=== PATIENT | female | born 1940 | race Caucasian/White ===

== ENCOUNTER 2018-12-03 14:45 | Inpatient (IN) | payer MEDICARE, BC, SELFPAY ==
[2018-12-03 15:26] VITALS: BP 147/65; PULSE 83; RESP 16; TEMP 37.3; O2SAT 94; BMI 34.3
--- NOTE | 2018-12-03 16:35 | PCM.PROGNOTE ---
Subjective: The patient is a 77-year-old female with a past medical history of anxiety, chronic renal failure stage III, dysthymia, GERD, hyperlipidemia, SVT, hypertension CML, retinitis pigmentosa and spinal stenosis of the lumbar region who was transferred to the rehab unit from the [facility] following laminectomy at L2-3, revision laminectomy at L4-5, removal of hardware L4-5 and fusion of L1-2?3?4. Vital signs at presentation to the rehab unit were temperature 99.1, pulse rate 83, blood pressure 147/65, respiratory rate 16 and she is 94% saturated on room air. She is a life long non-smoker. No alcohol use. she is a . EKG from the [facility] shows normal sinus rhythm with no significant ST or T wave changes. Has not had a BM since 11/27. Denies abdominal pain, nausea, dysuria. Appetite for the past day is decreased. She normally takes a stool softener at home. she gets nervous in crowds and when in close quarters because she can not see well. Has no peripheral vision. Denies any hx of heart disease other than SVT which is controlled. - Physical Exam General: Alert, Oriented x3, Cooperative, No apparent distress, Well developed, Well nourished, - - very pale HEENT: Atraumatic, PERRLA, Normocephalic Oral: No Gingival or Mucosal Lesions/ Ulcerations, Dry Mucosa Neck: Supple, No JVD, Negative Carotid Bruits, No Nodes, Trachea Midline, - - Carotids have brisk upstroke and excellent pulse volume bilaterally Lungs: Clear to auscultation, No rhonchi, No wheeze, No rales Cardiovascular: Regular rate, Regular Rhythm, Normal S1, Normal S2, Murmur - She has a grade 1/6 to 2/6 systolic ejection murmur heard best at the second right intercostal space, No rub noted, No Gallop Abdomen: Bowel Sounds Present, Soft, Non Tender, Non-Distended, No Hepato-splenomegaly, - - No guarding with palpation, no masses Extremities: No clubbing, No cyanosis, No edema, No Calf Tenderness, Peripheral Pulses Normal, - - She has many superficial varicosities of both lower extremities Skin: No rashes, No breakdown, - - The dressing over the lumbar spine is dry and there is no erythema or increased warmth around the dressing Neurological: Cranial nerves II-XII grossly intact, Neuro grossly intact Psych/Mental Status: Appropriate, Anxious Vital Signs Temp Pulse Resp BP Pulse Ox 99.1 F 83 16 147/65 H 94 12/03/18 15:26 12/03/18 15:26 12/03/18 15:26 12/03/18 15:26 12/03/18 15:26 Oxygen Delivery Method Room Air Weight: 213 lb Body Mass Index (BMI) 34.3 Medical Necessity - Tobacco Use Smoking Status: Never smoker Assessment/Plan Impressions 1. Lumbar canal stenosis with recent laminectomy L2-3, revision laminectomy L4-5, removal of hardware L4-5 and fusion of L1-2?3?4. She had a low graft of bone use diffuse 2. Retinitis pigmentosa 3. History of SVT controlled with diltiazem 4. Hypertension 5. Hyperlipidemia 6. CML - on Imatinib 7. Chronic renal failure stage III 8. Anemia-had 2 units of packed red blood cells transfused at the [facility] 9. GERD 10. Anxiety disorder 11. Sleep disorder-on Pamelor at bedtime in addition to Xanax 1 mg 12. very dry MM and states she is very thirsty Dulcolax 5 mg now Hold the HCTZ and encouraged her to increase her fluid intake Lab ordered for the AM Richard BID MV 1 daily Will review the lab in the AM when available. Code Visit Inpatient E&M: 50294 Subs Hosp L2
[2018-12-03] MEDS: Magnesium Hydroxide 30 ML UDC PO (18:13)
[2018-12-03] MEDS: oxyCODONE 5 MG Tablet PO (18:14)
[2018-12-03 19:53] VITALS: O2SAT 93
[2018-12-03 20:32] VITALS: BP 140/71; PULSE 77; RESP 18; TEMP 36.7; O2SAT 92
[2018-12-03] MEDS: FLUoxetine 20 MG Capsule 40 MG PO (20:39)
[2018-12-03] MEDS: Famotidine 20 MG Tablet 40 MG PO (20:39)
[2018-12-03] MEDS: Pravastatin 40 MG Tablet PO (20:39)
[2018-12-03] MEDS: Calcitriol 0.25 MCG Capsule PO (20:39)
[2018-12-03] MEDS: Nortriptyline 25 MG Capsule 50 MG PO (20:39)
[2018-12-03] MEDS: Senna/Docusate Sodium 1 Tablet 2 TABLET PO (20:39)
[2018-12-03] MEDS: ALPRAZolam 0.5 MG Tablet 1 MG PO (20:40)
[2018-12-03] MEDS: dilTIAZem CD 240 MG Capsule PO (20:40)
[2018-12-04] MEDS: oxyCODONE 5 MG Tablet PO ×4 (00:16→21:13)
[2018-12-04 05:49] LABS: Absolute Lymphocyte Count 0.98 X10^3/uL (0.83-4.51); Absolute Neutrophil Count 4.8 X10^3/uL (2.0-7.7); Basophil# 0.03 X10^3/uL; Basophil% 0.4 % (0-1); Eosinophil# 0.28 X10^3/uL; Eosinophils% 3.8 % (0-5); Hematocrit 28.3 % (37-47); Hemoglobin 9.7 g/dL (12.0-15.0); Lymphocyte # 0.98 X10^3/ul (4.0); Lymphocyte % 13.4 % (19-41); Mean Corp Hgb Conc 34.3 g/dL (32-36); Mean Corpuscular Hgb 33.9 pg (27.0-32.0); Mean Platelet Vol. 8.9 fl (6.2-12.0); Monocyte% 16.4 % (0-10); NRBC Flagged by Analyzer 0 % (0-5); Neutrophil # 4.79 X10^3/uL (2.7-7.7); Neutrophil % 65.6 % (47-70); Platelet Count 239 K/mm3 (150-450); RBC Distribution Width CV 14.6 % (11.6-14.6); Red Blood Count 2.86 M/mm3 (4.2-5.4); White Blood Count 7.3 K/mm3 (4.4-11.0)
[2018-12-04 06:14] LABS: Anion Gap 7 (5-15); BUN 13 mg/dL (7-18); BUN/Creat Ratio 12.5 RATIO (10-20); Calcium,Total 8.8 mg/dL (8.5-10.1); Chloride 95 mmol/L (98-107); Creatinine, Serum 1.04 mg/dL (0.55-1.02); EST Glomerular Filtration Rate 55 mL/min (>60); Est Glom Filt Rate - Afr Amer 66 mL/min (>60); Estimated Creatinine Clearance 43.08 ml/min; Glucose 113 mg/dL (74-106); Potassium 3.3 mmol/L (3.5-5.1); Sodium Level 133 mmol/L (136-145)
[2018-12-04 08:11] VITALS: BP 126/73; PULSE 71; RESP 16; TEMP 36.8; O2SAT 90
--- NOTE | 2018-12-04 09:58 | PCM.HP.COS ---
History of Present Illness Date of Admission: 12/03/18 Chief Complaint: Debility secondary to laminectomy and fusion The patient is a 77 year old F with PMH of CML, HTN, HLD, anxiety, depression, CKD stage III, GERD, retinitis pigmentosa, dysthymia, history of supraventricular tachycardia resolved, admitted to [facility] on 12/03/2018 for debility secondary to laminectomy and fusion, with a goal of returning home at or near her prior level of independence. On 11/28/2018, patient had Laminectomy L2-3, revision laminectomy L4-5, removal hardware L4-5, fusion L1-4, instrumentation L1-5, local bone, allograft by Dr. Hernandez due to stenosis, recurrent stenosis, and spondylolisthesis. Patient received 2 units of PRBC on 12/01/2018 d/t H&H 21.2/7.1, Hgb increased to 9.4 on 12/02/18. Patient lives alone in a one-story home with one-step to enter, prior to surgery she was independent with all ADLs and mobility. Patient stopped driving 2 years ago due to retinitis pigmentosa. Past Medical History Medical History: Medical History (Last Updated 12/03/18 @ 16:25 by Sondra Esquivel) Anxiety F41.9 Dysthymia F34.1 GERD (gastroesophageal reflux disease) K21.9 Hyperlipidemia E78.5 Leukemia C95.90 Onychomycosis B35.1 Retinitis pigmentosa H35.52 Spinal stenosis of lumbar region M48.061 Supraventricular tachycardia I47.1 chroinc kidney Hypertension I10 Allergies No Known Allergies Allergy (Verified 12/03/18 15:36) Home Medications: Ambulatory Orders Medication Instructions Recorded ALPRAZolam [Xanax] 1 mg PO QHS 12/03/18 Calcitriol 0.25 mcg PO QHS 12/03/18 Cyanocobalamin (Vitamin B-12) 200 mcg PO DAILY 12/03/18 [Vitamin B-12] Diltiazem HCl [Cardizem] 240 mg PO QHS 12/03/18 Fluoxetine HCl [Prozac] 40 mg PO QHS 12/03/18 Hydrochlorothiazide [Hctz] 25 mg PO DAILY 12/03/18 Imatinib Mesylate [Gleevec] 400 mg PO QHS 12/03/18 Nortriptyline HCl [Pamelor] 50 mg PO QHS 12/03/18 Oxycodone [Oxyir] 5 mg PO Q6H PRN 12/03/18 Pravastatin [Pravachol] 40 mg PO QHS 12/03/18 Ranitidine [Zantac] 300 mg PO BID 12/03/18 Surgical History: cataract, cholecystectomy, tonsillectomy, - - left hand 3rd digit surgery, left shoulder replacement, Lumbar fusion and laminectomy, Psychiatric History: Anxiety, Depression Lives: Alone Smoking Status: Never smoker Tobacco Use: Non-smoker Alcohol: None Drugs: None - *Family History Maternal History Items: Hypertension, - - Heart failure, macular degeneration Paternal History Items: - - at age 43 for some kind of heart disease per patient Review of Systems Constitutional: Denies: Chills, Fever, Weight Change Eyes: Reports: - - no peripherial kim d/t retinitis pegmentosa HEENT: Denies: Difficulty Swallowing, Head Aches, Sinus Congestion, Sinus Drainage Cardiovascular: Denies: Chest Pain, Chest Pressure, Chest Tightness, Palpitations Respiratory: Denies: Cough, Shortness of breath at rest, Shortness of breath upon exertion, Sputum production Gastrointestinal: Denies: Abdominal Pain, Nausea, Vomiting Genitourinary: Denies: Dysuria Musculoskeletal: Reports: - - minimal back pain post surgical Skin: Denies: Rash, Wounds Neurological: Denies: Blurred vision, Double vision, Change in Speech, Slurred speech, Focal weakness, Numbness, Tingling Psychiatric: Reports: Anxiety, Depression - has history, denies thoughts or feelings of self harm, nor has a plan Hematologic/ Lymphatic: Denies: Easy Bruising, Easy Bleeding VTE Information - Inpt Only VTE Present on Admission: No VTE Mechan Device Prophylaxis: SCD's VTE Pharm Prophylaxis ordered?: No Subjective: Nursing calling Dr. Hernandez office to ask about DVT prophylaxis. Rates pain as mild, intermittent, dull ache to back, increases during therapy. oxyir changed to every 4 hours as needed with scheduled Tylenol. Denies further questions or concerns. - Physical Exam General: Alert, Oriented x3, Cooperative HEENT: Atraumatic, PERRLA, - - no peripherial vision Oral: Moist Mucosa Neck: Supple, No JVD Lungs: Clear to auscultation, Normal air movement Cardiovascular: Regular rate, Regular Rhythm Abdomen: Bowel Sounds Present, Soft, Non Tender Extremities: No clubbing, No cyanosis, No edema Skin: Incision - drsg intact to lumbar incision, without drng noted or surroundng redness. Neurological: Cranial nerves II-XII grossly intact, Deep Tendon Reflexes 2+/4 and Symmetrical, Motor Exam 5/5 strength throughout Psych/Mental Status: Normal Affect, Appropriate, Alert and oriented to time, place, person, mood and affect Vital Signs Temp Pulse Resp BP Pulse Ox 98.3 F 71 16 126/73 H 90 12/04/18 08:11 12/04/18 08:11 12/04/18 08:11 12/04/18 08:11 12/04/18 08:11 Oxygen Delivery Method Room Air Weight: 96.615 kg Body Mass Index (BMI) 34.3 Intake and Output for Last 24 Hours 12/02/18 12/03/18 12/04/18 23:59 23:59 23:59 Output Total 450 / 450 177 / 177 Balance -450 / -450 -177 / -177 Laboratory Tests Past 24 Hrs 12/04/18 12/04/18 05:35 05:35 WBC 7.3 RBC 2.86 L Hgb 9.7 L Hct 28.3 L MCV 99.0 MCH 33.9 H MCHC 34.3 RDW Std Deviation 53.0 H RDW Coeff of Claudia 14.6 Plt Count 239 MPV 8.9 Immature Gran % (Auto) 0.400 Neut % (Auto) 65.6 Lymph % (Auto) 13.4 L [place] % (Auto) 16.4 H Eos % (Auto) 3.8 Baso % (Auto) 0.4 Absolute Neuts (auto) 4.8 Absolute Lymphs (auto) 0.98 Nucleated RBC % 0 Sodium 133 L Potassium 3.3 L Chloride 95 L Carbon Dioxide 31.0 Anion Gap 7 BUN 13 Creatinine 1.04 H Estim Creat Clear Calc 43.08 Est GFR (MDRD) Af Amer 66 Est GFR (MDRD) Non-Af 55 L BUN/Creatinine Ratio 12.5 Glucose 113 H Calcium 8.8 Assessment/Plan The patient is a 77 year old F with PMH of CML, HTN, HLD, anxiety, depression, CKD stage III, GERD, retinitis pigmentosa, dysthymia, history of supraventricular tachycardia resolved, admitted to [facility] on 12/03/2018 for debility secondary to laminectomy and fusion, with a goal of returning home at or near her prior level of independence. On 11/28/2018, patient had Laminectomy L2-3, revision laminectomy L4-5, removal hardware L4-5, fusion L1-4, instrumentation L1-5, local bone, allograft by Dr. Hernandez due to stenosis, recurrent stenosis, and spondylolisthesis. Patient received 2 units of PRBC on 12/01/2018 d/t H&H 21.2/7.1, Hgb increased to 9.4 on 12/02/18 Patient lives alone in a one-story home with one-step to enter, prior to surgery she was independent with all ADLs and mobility. Patient stopped driving 2 years ago due to retinitis pigmentosa. Plan - PT for mobility - OT for ADLs - Analgesics as needed - Laminectomy, revision and fusion- Appt with Dr. Hernandez on 12/15/18 @ 1000- rosibel to be d/c at appt, wear LSO brace when OOB, ok to remove LSO to bathe and dress. Shower daily and ice prn - CML on Gleevec - HTN on HCTZ d/c - HLD on Pravachol - HX of SVT on cardizem - Anxiety on Xanax - dysthymia on Prozac, Pamelor - CKD stage III - GERD on Pepcid - Retinitis pigmentosa - hypokalemia K+ 3.3 K-Dur 20 meq x 3 doses per hospitalist - Hyponatremia NA 133 encouraged fluids - GI/DVT prophylaxis on pepcid/SCDs message left with Dr. Hernandez office for DVT prophylaxis - Bowel protocol - Fall precautions - Medical management per hospitalist-consult - F/U Dr. Hernandez and PCP
[2018-12-04] MEDS: Senna/Docusate Sodium 1 Tablet 2 TABLET PO ×2 (10:22→21:15)
[2018-12-04] MEDS: Famotidine 20 MG Tablet 40 MG PO ×2 (10:23→21:16)
--- NOTE | 2018-12-04 11:00 | NURSING ---
left message for Dr Hernandez at [facility] to see if pt can start DVt propalitcs or not
[2018-12-04 11:18] VITALS: O2SAT 90
--- NOTE | 2018-12-04 14:02 | REHABEVAL_ITS ---
Admission Information Status Changes from Prescreening?: No changes Identified Actual Problem List:: Mobility Impaired, Self Care Deficit Potential Problem List:: DVT, Bleeding, Infection, UTI, Aspiration, Falls, Skin Integrity, Depression Risk of Complications DVT: LMWH, ARISTIDES Hose, Sequential Compression Device Bleeding: Monitor Lab Values, Nursing to Teach Precautions for anti-coagulation therapy., Wound, if applicable, to be assessed every shift., Stroke patients assessed for lethargy or change in status. Infection: Clinical Staff to Monitor for S/S of infection:, S/S of infection include fever, redness, warmth, etc. Urinary Tract Infection: Monitor for frequency, burning, discomfort, or incontinence., Nursing will obtain urine sample for urinalysis and C&S when ordered. Aspiration: Clinical staff will monitor for coughing, drooling, congestion., Speech will evaluate swallowing and dsyphasia., Nursing will monitor patient swallowing during meals. Falls: Patient will be evaluated for Fall Precautions, Patient will be placed on Fall Precautions as indicated per protocol. Skin Breakdown: Nursing will assess skin daily using assessment tool., Nursing will place on Skin Breakdown Precautions as indicated. Pain: Clinical staff will assess patient's pain level per protocol., Medications will be given, if needed, and the pain level reassessed., Other methods: Massage, distraction, decrease stimulus, etc. used PRN. Plan of Care Patient requires physician specializing in physical medicine and rehab oversight to provide close medical supervision of rehab issues including: Pain Management, Sleep Problems, Bowel and Bladder, Medical and co-morbidity Management, DVT prophylaxis, Rehabilitation Leadership, Coordination of treatment team Patient needs Physical Therapy: For a minimum of 1 hour, At least 5 out of 7 days Patient needs Physical Therapy to improve:: Mobility, Mobility, Mobility, Strengthening, Transfers, Stretching, ROM, Endurance, Stairs, Gait, Balance Patient needs Occupational Therapy: For a minimum of 1 hour, At least 5 out of 7 days Patient needs Occupational Therapy to improve ADL's incl.: Eating, Grooming, Bathing, Dressing, Toileting, Toilet transfers, Community Reintegration, Higher functioning activities, Household tasks, Adaptive Equipment, Splinting, Other activities as determined Patient requires speech therapy: For a minimum of 1 hour, At least 5 out of 7 days Patient requires speech therapy for: Swallowing, Cognition, Language Skills, Compensatory Strategies Patient requires 24/ Rehabilitation Nursing for: Pain Issues, Identifying and preventing risk factors, Monitoring and reporting current medical conditions, Assisting with ambulation, transfer, and all ADL's, Teaching patients about disease process and medications, Family teaching, Providing safe environment, Bowel and Bladder Issues, Skin integrity, Medication Management Patient needs Associate Data Scientist/ Case Management for: Discharge Planning, Arranging Home Equipment or Services, Family Interventions Patient needs Dietary and Nutrition Services for: Adequate Nutrition, Nutritional Supplements, Nutritional Education Goals Patient will remain: free from falls, or injury at time of discharge. Patient will perform bed mobility at: MOD I level of assist. Patient will complete transfers from bed to chair at: MOD I level of assist. Patient will ambulate: 100 feet, with MOD I assist, with LRD Patient will complete upper body dressing at: MOD I level of assist. Patient will complete lower body dressing at: MOD I level of assist. Patient will complete toileting at: MOD I level of assist. Patient will perform bathing at: MOD I level of assist. Patient will complete grooming at: MOD I level of assist. Patient will complete home management skills at: MOD I level of assist. Patient will achieve: 12 stairs, at MOD I assist Patient will have pain level of: of 3 or less Patient's skin will: remain intact, free from infection. Patient will receive: adequate nutrition. Discharge Planning Pt Prognosis for Sig. Practical Improv. w/in Reasonable Time: Good Estimated Length of stay (days): 16 Anticipated D/C Destination: Home
[2018-12-04] MEDS: Acetaminophen 500 MG Tablet 1000 MG PO ×2 (14:43→21:14)
[2018-12-04 19:25] VITALS: BP 98/61; PULSE 72; RESP 18; TEMP 36.8; O2SAT 93
[2018-12-04] MEDS: Nortriptyline 25 MG Capsule 50 MG PO (21:14)
[2018-12-04] MEDS: dilTIAZem CD 240 MG Capsule PO (21:14)
[2018-12-04] MEDS: Calcitriol 0.25 MCG Capsule PO (21:15)
[2018-12-04] MEDS: Pravastatin 40 MG Tablet PO (21:16)
[2018-12-04] MEDS: FLUoxetine 20 MG Capsule 40 MG PO (21:16)
[2018-12-04] MEDS: ALPRAZolam 0.5 MG Tablet 1 MG PO (21:28)
[2018-12-04 22:00] VITALS: PULSE 72; RESP 18; O2SAT 94
[2018-12-05] MEDS: oxyCODONE 5 MG Tablet PO ×4 (01:42→22:41)
--- NOTE | 2018-12-05 04:28 | NURSING ---
Pt set off BA and was found by staff attempting to get out of bed. Pt stated she didn't know why she couldn't get up to pee by herself. Pt reminded of safety measures in place to ensure pt remains fall free.
[2018-12-05] MEDS: Acetaminophen 500 MG Tablet 1000 MG PO ×3 (06:00→21:20)
--- NOTE | 2018-12-05 06:06 | NURSING ---
pt refused to have SCDs on after a.m. ADLS. Pt in bed planning to rest till breakfast and pt refused SCDs at this time. Pt advised of doctors orders and pt stated she doesn't like them.
[2018-12-05 06:38] VITALS: O2SAT 88
[2018-12-05 07:00] VITALS: BP 113/53; PULSE 65; RESP 16; TEMP 36.6; O2SAT 94
[2018-12-05] MEDS: Multivitamins,Therapeutic Tablet 1 TABLET PO (08:41)
[2018-12-05] MEDS: Senna/Docusate Sodium 1 Tablet 2 TABLET PO (08:41)
[2018-12-05] MEDS: Famotidine 20 MG Tablet 40 MG PO ×2 (08:41→21:20)
--- NOTE | 2018-12-05 12:05 | NURSING ---
called and left devin to nurses station left for office to caall back.ge with dr lopez office regarding wether or not pt can be on dvt prophylaxis and/or when it can be started.
--- NOTE | 2018-12-05 12:30 | NURSING ---
Received call from Dr. Patricia office and has ok'd patient to have DVT prophylaxis of Lovenox.
--- NOTE | 2018-12-05 12:51 | PN.NEURO_ITS ---
Subjective: Per nursing family voiced that patient had some confusion last night. Nursing voiced some urinary hesitancy, UA C&S will be obtained. O.K per Dr Hernandez to administer Lovenox as DVT prophylaxis. Pain is well controlled and is tolerating therapies. Denies further questions or concerns. - Physical Exam General: Alert, Oriented x3, Cooperative HEENT: Atraumatic, PERRLA Oral: Moist Mucosa Neck: Supple, No JVD Lungs: Clear to auscultation, Normal air movement Cardiovascular: Regular rate, Regular Rhythm Abdomen: Bowel Sounds Present, Soft, Non Tender Extremities: No clubbing, No cyanosis, No edema Skin: Incision - [place] intact to lumbar area, without redness or active drng- DSD Neurological: Cranial nerves II-XII grossly intact, Deep Tendon Reflexes 2+/4 and Symmetrical, Motor Exam 5/5 strength throughout Psych/Mental Status: Normal Affect, Appropriate, Alert and oriented to time, place, person, mood and affect Vital Signs Temp Pulse Resp BP Pulse Ox 97.9 F 65 16 113/53 L 94 12/05/18 07:00 12/05/18 07:00 12/05/18 07:00 12/05/18 07:00 12/05/18 07:00 Oxygen Delivery Method Room Air Weight: 96.6 kg Body Mass Index (BMI) 34.3 Intake and Output for Last 24 Hours 12/03/18 12/04/18 12/05/18 23:59 23:59 23:59 Intake Total 640 / 640 Output Total 450 / 450 178 / 178 Balance -450 / -450 -178 / -178 640 / 640 Medical Necessity - Tobacco Use Smoking Status: Never smoker Tobacco Use: Non-smoker Assessment/Plan The patient is a 77 year old F with PMH of CML, HTN, HLD, anxiety, depression, CKD stage III, GERD, retinitis pigmentosa, dysthymia, history of supraventricular tachycardia resolved, admitted to [facility] on 12/03/2018 for debility secondary to laminectomy and fusion, with a goal of returning home at or near her prior level of independence. On 11/28/2018, patient had Laminectomy L2-3, revision laminectomy L4-5, removal hardware L4-5, fusion L1-4, instrumentation L1-5, local bone, allograft by Dr. Hernandez due to stenosis, recurrent stenosis, and spondylolisthesis. Patient received 2 units of PRBC on 12/01/2018 d/t H&H 21.2/7.1, Hgb increased to 9.4 on 12/02/18 Patient lives alone in a one-story home with one-step to enter, prior to surgery she was independent with all ADLs and mobility. Patient stopped driving 2 years ago due to retinitis pigmentosa. Plan - PT for mobility - OT for ADLs - Analgesics as needed - Laminectomy, revision and fusion- Appt with Dr. Hernandez on 12/15/18 @ 1000- rosibel to be d/c at appt, wear LSO brace when OOB, ok to remove LSO to bathe and dress. Shower daily and ice prn - CML on Gleevec - HTN on HCTZ d/c - HLD on Pravachol - HX of SVT on cardizem - Anxiety on Xanax - dysthymia on Prozac, Pamelor - CKD stage III - GERD on Pepcid - Retinitis pigmentosa - hypokalemia K+ 3.3 K-Dur 20 meq x 3 doses per hospitalist BMP on 12/07/18 - Hyponatremia NA 133 encouraged fluids BMP on 12/07/18 - GI/DVT prophylaxis on pepcid/Lovenox and SCDs. - Confusion and urinary hesitancy obtain UA C&S - Bowel protocol - Fall precautions - Medical management per hospitalist-consult - F/U Dr. Hernandez and PCP
[2018-12-05 13:55] LABS: Bacteria 0 SEEN /hpf (None Seen); Mucous, Urine 0 SEEN /hpf (<or=2+); Red Blood Cells-Urine 0 SEEN /hpf (0-5); Squamous Epithelial Cells - UA 0 SEEN /hpf (5-10); White Blood Cells 0 SEEN /hpf (0-5)
--- NOTE | 2018-12-05 14:00 | NURSING ---
confusion noted. pt reoriented to place. pt c/o hesitancy with urination. dr kinney made aware. new order for ua. ua collected via straight cath, sent and negative. daughter updated.
[2018-12-05 14:09] LABS: Color, Urine Yellow (Yellow); Glucose, Dipstick Normal (Normal); Ketone-Dipstick Negative (Negative); Leukocyte Esterase-Dipstick Negative /ul (Negative); Nitrite-Dipstick Negative (Negative); Occult Blood-Urine Negative /ul (Negative); Protein-Dipstick Negative (Negative); Urine Bilirubin Dipstick Negative (Negative); Urine Clarity Clear (Clear); Urine Urobilinogen Normal (Normal)
[2018-12-05 19:49] VITALS: BP 134/83; PULSE 75; RESP 18; TEMP 36.7; O2SAT 94
[2018-12-05] MEDS: dilTIAZem CD 240 MG Capsule PO (21:19)
[2018-12-05] MEDS: FLUoxetine 20 MG Capsule 40 MG PO (21:20)
[2018-12-05] MEDS: Pravastatin 40 MG Tablet PO (21:20)
[2018-12-05] MEDS: Calcitriol 0.25 MCG Capsule PO (21:20)
[2018-12-05] MEDS: Nortriptyline 25 MG Capsule 50 MG PO (21:20)
[2018-12-05] MEDS: ALPRAZolam 0.5 MG Tablet 1 MG PO (21:26)
[2018-12-05 22:00] VITALS: PULSE 66; RESP 17; O2SAT 95
--- NOTE | 2018-12-05 23:42 | NURSING ---
20:00 dtr in room during pt assessment. Dtr journaling pt status. Dtr including remarks made by pt, such as, pt was waiting for Byron Whitmore from [facility] to divorce his and be with pt. Dtr queried pt about clarity of conversation and pt replied that she has been waiting 10 years so she might as well give up. Dtr expressed concern about pt confusion. Dtr was reassured that everything is being done for pt care and to ensure safety. Dtr stated she was reassured. Dtr will be at [facility] [place] [place] .
[2018-12-06] MEDS: oxyCODONE 5 MG Tablet PO (05:35)
[2018-12-06] MEDS: Acetaminophen 500 MG Tablet 1000 MG PO (05:35)
[2018-12-06] MEDS: Enoxaparin 40 MG/0.4 ML Syringe SC (05:36)
[2018-12-06 07:53] VITALS: BP 145/58; PULSE 75; RESP 18; TEMP 36.6; O2SAT 93
[2018-12-06] MEDS: Multivitamins,Therapeutic Tablet 1 TABLET PO (08:09)
[2018-12-06] MEDS: Famotidine 20 MG Tablet 40 MG PO ×2 (08:09→21:12)
--- NOTE | 2018-12-06 09:30 | NURSING ---
Daughter aware of new order to dc Oxyir and COUNTY COMMISSIONER Yanet ordered [place] to see if confusion would lessen.
--- NOTE | 2018-12-06 11:46 | PCM.PN.NEU ---
Subjective: Per nursing, daughter voicing with conversation. UA was negative. D/C oxyir and start norco 1-2 tabs every 6 hours as needed. Patient a/o x3 during assessment. Denies pain at rest. Tolerating therapies well. - Physical Exam General: Alert, Oriented x3, Cooperative HEENT: Atraumatic, PERRLA, - - left and right hemianopia- chronic Oral: Moist Mucosa Neck: Supple, No JVD Lungs: Clear to auscultation, Normal air movement Cardiovascular: Regular rate, Regular Rhythm Abdomen: Bowel Sounds Present, Soft, Non Tender Extremities: No clubbing, No cyanosis, No edema Skin: Incision - rosibel to lumbar area, without redness or drng. DSD Neurological: Cranial nerves II-XII grossly intact, Deep Tendon Reflexes 2+/4 and Symmetrical, Motor Exam 5/5 strength throughout Psych/Mental Status: Normal Affect, Appropriate, Alert and oriented to time, place, person, mood and affect Vital Signs Temp Pulse Resp BP Pulse Ox 97.8 F 75 18 145/58 H 93 12/06/18 07:53 12/06/18 07:53 12/06/18 07:53 12/06/18 07:53 12/06/18 07:53 Oxygen Delivery Method Room Air Weight: 77.8 kg Body Mass Index (BMI) 34.3 Intake and Output for Last 24 Hours 12/04/18 12/05/18 12/06/18 23:59 23:59 23:59 Intake Total 1120 / 1120 240 / 240 Output Total 178 / 178 Balance -178 / -178 1120 / 1120 240 / 240 Laboratory Tests Past 24 Hrs 12/05/18 13:15 Urine Color Yellow Urine Clarity Clear Urine pH 6.0 Ur Specific [place] 1.010 Urine Protein Negative Urine Glucose (UA) Normal Urine Ketones Negative Urine Occult Blood Negative Urine Nitrite Negative Urine Bilirubin Negative Urine Urobilinogen Normal Ur Leukocyte Esterase Negative Urine RBC 0 SEEN Urine WBC 0 SEEN Ur Squamous Epith Cells 0 SEEN Urine Bacteria 0 SEEN Urine Mucus 0 SEEN Medical Necessity - Tobacco Use Smoking Status: Never smoker Tobacco Use: Non-smoker Assessment/Plan The patient is a 77 year old F with PMH of CML, HTN, HLD, anxiety, depression, CKD stage III, GERD, retinitis pigmentosa, dysthymia, history of supraventricular tachycardia resolved, admitted to [facility] on 12/03/2018 for debility secondary to laminectomy and fusion, with a goal of returning home at or near her prior level of independence. On 11/28/2018, patient had Laminectomy L2-3, revision laminectomy L4-5, removal hardware L4-5, fusion L1-4, instrumentation L1-5, local bone, allograft by Dr. Henrandez due to stenosis, recurrent stenosis, and spondylolisthesis. Patient received 2 units of PRBC on 12/01/2018 d/t H&H 21.2/7.1, Hgb increased to 9.4 on 12/02/18 Patient lives alone in a one-story home with one-step to enter, prior to surgery she was independent with all ADLs and mobility. Patient stopped driving 2 years ago due to retinitis pigmentosa. Plan - PT for mobility - OT for ADLs - Analgesics as needed - Laminectomy, revision and fusion- Appt with Dr. Hernandez on 12/15/18 @ 1000- rosibel to be d/c at appt, wear LSO brace when OOB, ok to remove LSO to bathe and dress. Shower daily and ice prn - CML on Gleevec - HTN on HCTZ d/c - HLD on Pravachol - HX of SVT on cardizem - Anxiety on Xanax - dysthymia on Prozac, Pamelor - CKD stage III - GERD on Pepcid - Retinitis pigmentosa - hypokalemia K+ 3.3 K-Dur 20 meq x 3 doses per hospitalist BMP on 12/07/18 - Hyponatremia NA 133 encouraged fluids BMP on 12/07/18 - GI/DVT prophylaxis on pepcid/Lovenox and SCDs. - Confusion and urinary hesitancy obtain UA - negative oxyir d/c and added norco - Bowel protocol - Fall precautions - Medical management per hospitalist-consult - F/U Dr. Hernandez and PCP
--- NOTE | 2018-12-06 18:51 | NURSING ---
pt alarm sounding alerting staff, upon entering room, pt attempting to self transfer from recliner chair to bed. Family present at time and educated on importance of pt ringing call light and staff assisting with transfer. Voiced understanding.
[2018-12-06 19:35] VITALS: BP 127/74; PULSE 78; RESP 16; TEMP 36.9; O2SAT 97
[2018-12-06] MEDS: HYDROcodone Bitartrate/Apap 5/325 Tablet PO (20:02)
[2018-12-06] MEDS: Nortriptyline 25 MG Capsule 50 MG PO (21:12)
[2018-12-06] MEDS: dilTIAZem CD 240 MG Capsule PO (21:12)
[2018-12-06] MEDS: Calcitriol 0.25 MCG Capsule PO (21:12)
[2018-12-06] MEDS: ALPRAZolam 0.5 MG Tablet 1 MG PO (21:12)
[2018-12-06] MEDS: FLUoxetine 20 MG Capsule 40 MG PO (21:12)
[2018-12-06] MEDS: Pravastatin 40 MG Tablet PO (21:12)
[2018-12-06 22:00] VITALS: PULSE 78; RESP 16; O2SAT 94
[2018-12-07] MEDS: HYDROcodone Bitartrate/Apap 5/325 Tablet PO ×3 (02:22→20:59)
--- NOTE | 2018-12-07 02:39 | NURSING ---
Pt reclining in bed eating chips and drinking after complaining she hasn't been able to sleep. [place] provided for c/o pain. Pt remarked about not understanding why she had to call for assistance to toilet. Pt states she can make it to the bathroom on her own. Pt has been up several times for toileting with staff assistance. Pt has spilled her water pitcher onto floor & staff cleaned up. Staff are jumping up constantly to noises from room, fearing pt is attempting to get up. Staff is monitoring closely.
[2018-12-07] MEDS: Enoxaparin 40 MG/0.4 ML Syringe SC (05:22)
[2018-12-07 06:07] LABS: Anion Gap 7 (5-15); BUN 25 mg/dL (7-18); BUN/Creat Ratio 26.5 RATIO (10-20); Calcium,Total 8.9 mg/dL (8.5-10.1); Chloride 103 mmol/L (98-107); Creatinine, Serum 0.94 mg/dL (0.55-1.02); EST Glomerular Filtration Rate 61 mL/min (>60); Est Glom Filt Rate - Afr Amer 74 mL/min (>60); Estimated Creatinine Clearance 47.66 ml/min; Glucose 107 mg/dL (74-106); Potassium 3.4 mmol/L (3.5-5.1); Sodium Level 137 mmol/L (136-145)
[2018-12-07] MEDS: Multivitamins,Therapeutic Tablet 1 TABLET PO (08:03)
[2018-12-07] MEDS: Senna/Docusate Sodium 1 Tablet 2 TABLET PO (08:03)
[2018-12-07] MEDS: Famotidine 20 MG Tablet 40 MG PO ×2 (08:03→21:00)
[2018-12-07 08:07] VITALS: BP 138/79; PULSE 74; RESP 16; TEMP 36.7; O2SAT 95
--- NOTE | 2018-12-07 09:06 | PN.NEURO_ITS ---
Subjective: Staffed team meeting. Further details from PT/OT from notes. All questions answered. Patient gets up multiple times through the night to go to the bathroom, this is her baseline. Denies burning, hesitancy, difficultly voiding or painful with urination. Seroquel 12.5 mg QHS will be started. Nortriptyline and Xanax will be discontinued. - Physical Exam General: Alert, Oriented x3, Cooperative, - - can be forgetul at times HEENT: Atraumatic, PERRLA, - - left and right hemianopia Oral: Moist Mucosa Neck: Supple, No JVD Lungs: Clear to auscultation, Normal air movement Cardiovascular: Regular rate, Regular Rhythm Abdomen: Bowel Sounds Present, Soft, Non Tender Extremities: No clubbing, No cyanosis, No edema Skin: Incision - rosibel intact without redness or drng, DSD Neurological: Cranial nerves II-XII grossly intact, Deep Tendon Reflexes 2+/4 and Symmetrical, Motor Exam 5/5 strength throughout Psych/Mental Status: Normal Affect, Appropriate, Alert and oriented to time, place, person, mood and affect - can be forgetful at times, redirects easily, cooperative and pleasant Vital Signs Temp Pulse Resp BP Pulse Ox 98.0 F 74 16 138/79 H 95 12/07/18 08:07 12/07/18 08:07 12/07/18 08:07 12/07/18 08:07 12/07/18 08:07 Oxygen Delivery Method Room Air Weight: 77.8 kg Body Mass Index (BMI) 34.3 Intake and Output for Last 24 Hours 12/05/18 12/06/18 12/07/18 23:59 23:59 23:59 Intake Total 1120 / 1120 240 / 240 Balance 1120 / 1120 240 / 240 Laboratory Tests Past 24 Hrs 12/07/18 05:33 Sodium 137 Potassium 3.4 L Chloride 103 Carbon Dioxide 27.0 Anion Gap 7 BUN 25 H Creatinine 0.94 Estim Creat Clear Calc 47.66 Est GFR (MDRD) Af Amer 74 Est GFR (MDRD) Non-Af 61 BUN/Creatinine Ratio 26.5 H Glucose 107 H Calcium 8.9 Medical Necessity - Tobacco Use Smoking Status: Never smoker Tobacco Use: Non-smoker Assessment/Plan The patient is a 77 year old F with PMH of CML, HTN, HLD, anxiety, depression, CKD stage III, GERD, retinitis pigmentosa, dysthymia, history of supraventricular tachycardia resolved, admitted to [facility] on 12/03/2018 for debility secondary to laminectomy and fusion, with a goal of returning home at or near her prior level of independence. On 11/28/2018, patient had Laminectomy L2-3, revision laminectomy L4-5, removal hardware L4-5, fusion L1-4, instrumentation L1-5, local bone, allograft by Dr. Hernandez due to stenosis, recurrent stenosis, and spondylolisthesis. Patient received 2 units of PRBC on 12/01/2018 d/t H&H 21.2/7.1, Hgb increased to 9.4 on 12/02/18 Patient lives alone in a one-story home with one-step to enter, prior to surgery she was independent with all ADLs and mobility. Patient stopped driving 2 years ago due to retinitis pigmentosa. Plan - PT for mobility - OT for ADLs - Analgesics as needed - Laminectomy, revision and fusion- Appt with Dr. Hernandez on 12/15/18 @ 1000- rosibel to be d/c at appt, wear LSO brace when OOB, ok to remove LSO to bathe and dress. Shower daily and ice prn - CML on Gleevec - HTN on HCTZ d/c - HLD on Pravachol - HX of SVT on cardizem - Anxiety xanax d/c was started on seroquel - dysthymia on Prozac Pamelor - CKD stage III - GERD on Pepcid - Retinitis pigmentosa - hypokalemia K+ 3.3 K-Dur 20 meq x 3 doses recheck BMP on 12/07/18 K+ 3.4 - directed by hospitalist - Hyponatremia NA 133 encouraged fluids BMP on 12/07/18 NA 137 - Insomnia on seroquel - GI/DVT prophylaxis on pepcid/Lovenox and SCDs. - Confusion and urinary hesitancy obtain UA - negative oxyir d/c and added norco - Bowel protocol - Fall precautions - Medical management per hospitalist-consult - F/U Dr. Hernandez and PCP
--- NOTE | 2018-12-07 10:53 | NURSING ---
pt bed exit alarm going off and pt found to be up in room without brace out of bed without walker. stated, whats that noise? is the phone ringing? pa and bed exit on d/t confusion and unsteadiness
--- NOTE | 2018-12-07 11:14 | CASEMGMT ---
Social Work IDT met with patient and daughter for Team Meeting. Discussed patient's progress in therapy. Pt experiencing confusion and being fidgety which daughter states is not baseline. Medication adjustments made. Patient is doing well in therapy walking 150 ft with FWW at min assists. Min for transfers, ADLS and bed mobility as pt has poor balance, and doing 3 steps with 2 rails. Patient needing mod assist for lower body dressing d/t back precautions. Pt having difficulty remembering to use DME for assistance. Will continue to work on improvement and return to baseline home alone. Explained Medicare benefit with [employer] until 12/23. Will ReTeam next week to discuss progress. Will continue to follow for discharge planning. JUDIT BotelloW
[2018-12-07 19:21] VITALS: BP 161/67; PULSE 80; RESP 18; TEMP 36.6; O2SAT 95
[2018-12-07] MEDS: QUEtiapine 25 MG Tablet 12.5 MG PO (20:52)
[2018-12-07] MEDS: Pravastatin 40 MG Tablet PO (21:00)
[2018-12-07] MEDS: Calcitriol 0.25 MCG Capsule PO (21:00)
[2018-12-07] MEDS: FLUoxetine 20 MG Capsule 40 MG PO (21:00)
[2018-12-07] MEDS: dilTIAZem CD 240 MG Capsule PO (21:01)
[2018-12-08] MEDS: Enoxaparin 40 MG/0.4 ML Syringe SC (06:41)
[2018-12-08] MEDS: Famotidine 20 MG Tablet 40 MG PO ×2 (08:09→21:10)
[2018-12-08] MEDS: Multivitamins,Therapeutic Tablet 1 TABLET PO (08:09)
[2018-12-08 09:12] VITALS: BP 162/71; PULSE 84; RESP 16; TEMP 37; O2SAT 95
--- NOTE | 2018-12-08 14:29 | PN.NEURO_ITS ---
Subjective: Per nursing, continues to wake up through the night multiple times for bathroom. Received one dose of 12 mg of seroquel last night, continue sleep hygiene, keep up and active, no naps during the day. Patient continues to tolerate therapies and pain is controlled. Denies further questions or concerns. - Physical Exam General: Alert, Oriented x3 - can be forgetful at times HEENT: Atraumatic, PERRLA, - - chronic-left and right hemianopia Oral: Moist Mucosa Neck: Supple, No JVD Lungs: Clear to auscultation, Normal air movement Cardiovascular: Regular rate, Regular Rhythm Abdomen: Bowel Sounds Present, Soft, Non Tender Extremities: No clubbing, No cyanosis, No edema Skin: Incision - rosibel intact to lumbar area, without redness or drng Neurological: Cranial nerves II-XII grossly intact - chronic- left and right hemianopia, Motor Exam 5/5 strength throughout Psych/Mental Status: Normal Affect, Appropriate, Alert and oriented to time, place, person, mood and affect - can be forgetful at times, redirects easily, cooperative and pleasant Vital Signs Temp Pulse Resp BP Pulse Ox 98.6 F 84 16 162/71 H 95 12/08/18 09:12 12/08/18 09:12 12/08/18 09:12 12/08/18 09:12 12/08/18 09:12 Oxygen Delivery Method Room Air Weight: 77.8 kg Body Mass Index (BMI) 34.3 Intake and Output for Last 24 Hours 12/06/18 12/07/18 12/08/18 23:59 23:59 23:59 Intake Total 240 / 240 240 / 240 Output Total 100 / 100 Balance 240 / 240 240 / 240 -100 / -100 Medical Necessity - Tobacco Use Smoking Status: Never smoker Tobacco Use: Non-smoker Assessment/Plan The patient is a 77 year old F with PMH of CML, HTN, HLD, anxiety, depression, CKD stage III, GERD, retinitis pigmentosa, dysthymia, history of supraventr icular tachycardia resolved, admitted to [facility] on 12/03/2018 for debility secondary to laminectomy and fusion, with a goal of returning home at or near her prior level of independence. On 11/28/2018, patient had Laminectomy L2-3, revision laminectomy L4-5, removal hardware L4-5, fusion L1-4, instrumentation L1-5, local bone, allograft by Dr. Hernandez due to stenosis, recurrent stenosis, and spondylolisthesis. Patient received 2 units of PRBC on 12/01/2018 d/t H&H 21.2/7.1, Hgb increased to 9.4 on 12/02/18 Patient lives alone in a one-story home with one-step to enter, prior to surgery she was independent with all ADLs and mobility. Patient stopped driving 2 years ago due to retinitis pigmentosa. Plan - PT for mobility - OT for ADLs - Analgesics as needed - Laminectomy, revision and fusion- Appt with Dr. Hernandez on 12/15/18 @ 1000- rosibel to be d/c at appt, wear LSO brace when OOB, ok to remove LSO to bathe and dress. Shower daily and ice prn - CML on Gleevec - HTN on HCTZ d/c - HLD on Pravachol - HX of SVT on cardizem - Anxiety xanax d/c was started on seroquel - dysthymia on Prozac, Pamelor - CKD stage III - GERD on Pepcid - Retinitis pigmentosa - hypokalemia K+ 3.3 K-Dur 20 meq x 3 doses recheck BMP on 12/07/18 K+ 3.4 - directed by hospitalist - Hyponatremia NA 133 encouraged fluids BMP on 12/07/18 NA 137 - Insomnia on seroquel - GI/DVT prophylaxis on pepcid/Lovenox and SCDs. - Confusion and urinary hesitancy obtain UA - negative oxyir d/c and added norco - Bowel protocol - Fall precautions - Medical management per hospitalist-consult - F/U Dr. Hernandez and PCP
[2018-12-08 18:42] VITALS: BP 154/78; PULSE 16; RESP 87; TEMP 36.5; O2SAT 95
[2018-12-08] MEDS: QUEtiapine 25 MG Tablet 12.5 MG PO (21:09)
[2018-12-08] MEDS: dilTIAZem CD 240 MG Capsule PO (21:09)
[2018-12-08] MEDS: Loperamide 2 MG Capsule PO (21:09)
[2018-12-08] MEDS: Calcitriol 0.25 MCG Capsule PO (21:10)
[2018-12-08] MEDS: Pravastatin 40 MG Tablet PO (21:11)
[2018-12-08] MEDS: FLUoxetine 20 MG Capsule 40 MG PO (21:15)
[2018-12-09] MEDS: Enoxaparin 40 MG/0.4 ML Syringe SC (05:36)
[2018-12-09 07:00] VITALS: BP 150/72; PULSE 83; RESP 15; TEMP 36.9; O2SAT 94
[2018-12-09] MEDS: Multivitamins,Therapeutic Tablet 1 TABLET PO (08:31)
[2018-12-09] MEDS: Famotidine 20 MG Tablet 40 MG PO ×2 (08:31→21:37)
--- NOTE | 2018-12-09 11:07 | PCM.PN.HOSP ---
Subjective: Doing well with therapy, no issues overnight Vitals/I&O's: Vital Signs Temp Pulse Resp BP Pulse Ox 98.5 F 83 15 150/72 H 94 12/09/18 07:00 12/09/18 07:00 12/09/18 07:00 12/09/18 07:00 12/09/18 07:00 Oxygen Delivery Method Room Air Weight: 171 lb 8.314 oz Body Mass Index (BMI) 34.3 Intake and Output for Last 24 Hours 12/07/18 12/08/18 12/09/18 23:59 23:59 23:59 Intake Total 240 / 240 240 / 240 Output Total 100 / 100 Balance 240 / 240 -100 / -100 240 / 240 General: Alert, Oriented x3, Cooperative, No apparent distress HEENT: Atraumatic, PERRLA, EOMI, Normocephalic Oral: Moist Mucosa Neck: Supple, No JVD Lungs: Clear to auscultation, Normal air movement, No rhonchi, No wheeze, No rales Cardiovascular: Regular rate, Regular Rhythm, Normal S1, Normal S2, No murmurs Abdomen: Soft, Non Tender, Non-Distended, No Hepato-splenomegaly Extremities: No edema, Capillary Refill Less than 3 Seconds Skin: No rashes, No breakdown, Incision - C/D/I Neurological: Neuro grossly intact, Sensory exam intact to light touch and pain Psych/Mental Status: Normal Affect, Appropriate Current Medications Hydrocodone Bitart/Acetaminophen (Tow 5mg-325mg) 1 - 2 tablet PO Q6H PRN PRN PRN Reason: PAIN Last Admin: 12/07/18 20:59 Dose: 1 tablet Documented by: Bisacodyl (Dulcolax) 10 mg RECTAL .PRN X 1 PRN PRN Reason: Constipation Calcitriol (Rocaltrol) 0.25 mcg PO QHS [facility] Last Admin: 12/08/18 21:10 Dose: 0.25 mcg Documented by: Diltiazem HCl (Cardizem Cd) 240 mg PO QHS [facility] Last Admin: 12/08/18 21:09 Dose: 240 mg Documented by: Enoxaparin Sodium (Lovenox) 40 mg SC DAILY@0600 [facility] Last Admin: 12/09/18 05:36 Dose: 40 mg Documented by: Famotidine (Pepcid) 40 mg PO BID [facility] Last Admin: 12/09/18 08:31 Dose: 40 mg Documented by: Fluoxetine HCl (Prozac) 40 mg PO QHS [facility] Last Admin: 12/08/18 21:15 Dose: 40 mg Documented by: Imatinib Mesylate (Gleevec) 400 mg PO QHS [facility] Last Admin: 12/08/18 21:08 Dose: 400 mg Documented by: Loperamide HCl (Imodium) 2 mg PO TID PRN PRN PRN Reason: DIARRHEA/LOOSE STOOLS Last Admin: 12/08/18 21:09 Dose: 2 mg Documented by: Magnesium Hydroxide (Milk Of Magnesia) 30 ml PO .PRN X 1 PRN PRN Reason: Constipation Last Admin: 12/03/18 18:13 Dose: 30 ml Documented by: [facility]ivit[facility] ([facility]amin) [facility] Last Admin: 12/09/18 08:31 Dose: 1 tablet Documented by: Nutritional Formula (Richard - [place] Flavor) [facility] Last Admin: 12/09/18 08:31 Dose: 1 packet Documented by: Potassium Chloride (K-Dur) [facility] Last Admin: 12/09/18 08:31 Dose: 20 meq Documented by: Pravastatin Sodium (Pravachol) 40 mg PO QHS [facility] Last Admin: 12/08/18 21:11 Dose: 40 mg Documented by: Quetiapine Fumarate (Seroquel) 12.5 mg PO QHS [facility] Last Admin: 12/08/18 21:09 Dose: 12.5 mg Documented by: Senna/Docusate Sodium (Senokot-S, Malathi-Colace) 2 tablet PO BID [facility] Last Admin: 12/09/18 07:36 Dose: Not Given Documented by: Medical Necessity - Tobacco Use Smoking Status: Never smoker Tobacco Use: Non-smoker Assessment/Plan 1. Lumbar canal stenosis status post laminectomy of L2-3, revision laminectomy of L4 and 5 as well as removal of hardware from L4 and 5 and fusion of L1-4 -Continue with PT/OT -Incision does not seem to be infected -Continue pain management per primary 2. HTN/HLD/history of SVT -Continue with her home blood pressure medications as well as her statin -Continue with her Cardizem for her SVT 3. CML -Stable -Continue with imatinib 4. Chronic renal failure stage III -Creatinine and GFR at baseline -Continue to monitor periodically 5. Depression/anxiety/sleep disorder -Stable -Continue with Prozac -Continue Seroquel 12.5 mg at night 6. Anemia possibly secondary to chronic disease versus acute blood loss from surgery -Transfuse 2 units at the [facility] after surgery -9.7 on admission -Will monitor periodically and transfuse as necessary DVT: Lovenox
[2018-12-09] MEDS: HYDROcodone Bitartrate/Apap 5/325 Tablet PO ×2 (13:49→21:34)
[2018-12-09 19:30] VITALS: BP 131/77; PULSE 81; RESP 16; TEMP 37; O2SAT 94
[2018-12-09] MEDS: QUEtiapine 25 MG Tablet 12.5 MG PO (21:36)
[2018-12-09] MEDS: Pravastatin 40 MG Tablet PO (21:37)
[2018-12-09] MEDS: Calcitriol 0.25 MCG Capsule PO (21:37)
[2018-12-09] MEDS: FLUoxetine 20 MG Capsule 40 MG PO (21:37)
[2018-12-09] MEDS: dilTIAZem CD 240 MG Capsule PO (21:37)
--- NOTE | 2018-12-10 01:50 | NURSING ---
PT STATES SHE HAS BEEN UNABLE TO FALL ASLEEP THUS FAR THIS SHIFT AND FEELS IF SHE HAD GABAPENTIN THAT WOULD HELP HER LEGS TO CALM DOWN AND SHE MAY BE ABLE TO FALL ASLEEP. PT STATES SHE WOULD USES GABAPENTIN AT HOME FOR THIS. CALL PLACED TO HOSPITALIST WHO WILL PUT IN AN ORDER FOR A REQUIP.
[2018-12-10] MEDS: Pramipexole Di-HCl 0.5 MG Tablet PO ×2 (02:25→21:08)
[2018-12-10] MEDS: HYDROcodone Bitartrate/Apap 5/325 Tablet PO (03:44)
[2018-12-10 07:00] VITALS: BP 155/50; PULSE 77; RESP 16; TEMP 36.9; O2SAT 97
[2018-12-10] MEDS: Enoxaparin 40 MG/0.4 ML Syringe SC (07:18)
[2018-12-10] MEDS: Famotidine 20 MG Tablet 40 MG PO ×2 (07:36→21:08)
[2018-12-10] MEDS: hydroCHLOROthiazide 25 MG Tablet PO (07:36)
[2018-12-10] MEDS: Multivitamins,Therapeutic Tablet 1 TABLET PO (07:36)
[2018-12-10 19:56] VITALS: BP 164/82; PULSE 92; RESP 18; TEMP 36.8; O2SAT 96
[2018-12-10] MEDS: QUEtiapine 25 MG Tablet 12.5 MG PO (21:06)
[2018-12-10] MEDS: Calcitriol 0.25 MCG Capsule PO (21:08)
[2018-12-10] MEDS: FLUoxetine 20 MG Capsule 40 MG PO (21:08)
[2018-12-10] MEDS: Pravastatin 40 MG Tablet PO (21:08)
[2018-12-10] MEDS: dilTIAZem CD 240 MG Capsule PO (21:09)
[2018-12-11 05:40] LABS: Absolute Lymphocyte Count 1.03 X10^3/uL (0.83-4.51); Absolute Neutrophil Count 4.9 X10^3/uL (2.0-7.7); Basophil# 0.04 X10^3/uL; Basophil% 0.6 % (0-1); Eosinophil# 0.27 X10^3/uL; Eosinophils% 3.9 % (0-5); Hematocrit 30.2 % (37-47); Hemoglobin 10.3 g/dL (12.0-15.0); Lymphocyte # 1.03 X10^3/ul (4.0); Lymphocyte % 14.9 % (19-41); Mean Corp Hgb Conc 34.1 g/dL (32-36); Mean Corpuscular Hgb 33.8 pg (27.0-32.0); Mean Platelet Vol. 8.7 fl (6.2-12.0); Monocyte# 0.67 X10^3/uL; Monocyte% 9.7 % (0-10); NRBC Flagged by Analyzer 0 % (0-5); Neutrophil # 4.88 X10^3/uL (2.7-7.7); Neutrophil % 70.3 % (47-70); Platelet Count 401 K/mm3 (150-450); RBC Distribution Width CV 14.1 % (11.6-14.6); RBC Distribution Width SD 51.6 fl (35.1-43.9); Red Blood Count 3.05 M/mm3 (4.2-5.4); White Blood Count 6.9 K/mm3 (4.4-11.0)
[2018-12-11] MEDS: Enoxaparin 40 MG/0.4 ML Syringe SC (06:47)
[2018-12-11] MEDS: HYDROcodone Bitartrate/Apap 5/325 Tablet PO ×2 (06:51→17:37)
--- NOTE | 2018-12-11 07:09 | NURSING ---
SCANT AMT SEROSANAGUINOUS, ODORLESS DRAINAGE NOTED FROM BACK INCISION. CLEANSED WITH SALINE AND STERILE GAUZE/ABD PAD APPLIED.NO REDNESS NOTED TO INCISION.
[2018-12-11 07:15] VITALS: BP 159/74; PULSE 80; RESP 17; TEMP 37; O2SAT 96
[2018-12-11] MEDS: Multivitamins,Therapeutic Tablet 1 TABLET PO (07:40)
[2018-12-11] MEDS: hydroCHLOROthiazide 25 MG Tablet PO (07:41)
[2018-12-11] MEDS: Famotidine 20 MG Tablet 40 MG PO ×2 (07:41→21:21)
--- NOTE | 2018-12-11 08:44 | PCM.PN.HOSP ---
Subjective: Doing well with therapy no issues overnight Vitals/I&O's: Vital Signs Temp Pulse Resp BP Pulse Ox 98.6 F 80 17 159/74 H 96 12/11/18 07:15 12/11/18 07:15 12/11/18 07:15 12/11/18 07:15 12/11/18 07:15 Oxygen Delivery Method Room Air Weight: 171 lb 8.314 oz Body Mass Index (BMI) 34.3 Intake and Output for Last 24 Hours 12/09/18 12/10/18 12/11/18 23:59 23:59 23:59 Intake Total 720 / 720 240 / 240 490 / 490 Balance 720 / 720 240 / 240 490 / 490 General: Alert, Oriented x3, Cooperative, No apparent distress HEENT: Atraumatic, PERRLA, EOMI, Normocephalic Oral: Moist Mucosa Neck: Supple, No JVD Lungs: Clear to auscultation, Normal air movement, No rhonchi, No wheeze, No rales Cardiovascular: Regular rate, Regular Rhythm, Normal S1, Normal S2, No murmurs Abdomen: Soft, Non Tender, Non-Distended, No Hepato-splenomegaly Extremities: No edema, Capillary Refill Less than 3 Seconds Skin: No rashes, No breakdown, Incision - C/D/I Neurological: Neuro grossly intact, Sensory exam intact to light touch and pain Psych/Mental Status: Normal Affect, Appropriate Laboratory Results 12/11/18 05:20: WBC 6.9, RBC 3.05 L, Hgb 10.3 L, Hct 30.2 L, MCV 99.0, MCH 33.8 H, MCHC 34.1, RDW Std Deviation 51.6 H, RDW Coeff of Claudia 14.1, Plt Count 401, MPV 8.7, Immature Gran % (Auto) 0.600, Neut % (Auto) 70.3 H, Lymph % (Auto) 14.9 L, [place] % (Auto) 9.7, Eos % (Auto) 3.9, Baso % (Auto) 0.6, Absolute Neuts (auto) 4.9, Absolute Lymphs (auto) 1.03, Nucleated RBC % 0 Current Medications Hydrocodone Bitart/Acetaminophen ([place] 5mg-325mg) 1 - 2 tablet PO Q6H PRN PRN PRN Reason: PAIN Last Admin: 12/11/18 06:51 Dose: 1 tablet Documented by: Bisacodyl (Dulcolax) 10 mg RECTAL .PRN X 1 PRN PRN Reason: Constipation Calcitriol (Rocaltrol) 0.25 mcg PO QHS [facility] Last Admin: 12/10/18 21:08 Dose: 0.25 mcg Documented by: Diltiazem HCl (Cardizem Cd) 240 mg PO QHS [facility] Last Admin: 12/10/18 21:09 Dose: 240 mg Documented by: Enoxaparin Sodium (Lovenox) 40 mg SC DAILY@0600 [facility] Last Admin: 12/11/18 06:47 Dose: 40 mg Documented by: Famotidine (Pepcid) 40 mg PO BID [facility] Last Admin: 12/11/18 07:41 Dose: 40 mg Documented by: Fluoxetine HCl (Prozac) 40 mg PO QHS [facility] Last Admin: 12/10/18 21:08 Dose: 40 mg Documented by: Hydrochlorothiazide (Hctz) 25 mg PO DAILY [facility] Last Admin: 12/11/18 07:41 Dose: 25 mg Documented by: Imatinib Mesylate (Gleevec) 400 mg PO QHS [facility] Last Admin: 12/10/18 21:09 Dose: 400 mg Documented by: Loperamide HCl (Imodium) 2 mg PO TID PRN PRN PRN Reason: DIARRHEA/LOOSE STOOLS Last Admin: 12/08/18 21:09 Dose: 2 mg Documented by: Magnesium Hydroxide (Milk Of Magnesia) 30 ml PO .PRN X 1 PRN PRN Reason: Constipation Last Admin: 12/03/18 18:13 Dose: 30 ml Documented by: Multivitamins (Multivitamin) [facility] Last Admin: 12/11/18 07:40 Dose: 1 tablet Documented by: Nutritional Formula (Richard - [place] Flavor) [facility] Last Admin: 12/11/18 07:40 Dose: 1 packet Documented by: Potassium Chloride (K-Dur) 20 meq [facility] Last Admin: 12/11/18 07:41 Dose: 20 meq Documented by: Pramipexole [facility]chlor[facility] ([facility] Last Admin: 12/10/18 21:08 Dose: 0.5 mg Documented by: Pravastatin Sodium (Pravachol) 40 mg PO QHS [facility] Last Admin: 12/10/18 21:08 Dose: 40 mg Documented by: Quetiapine Fumarate (Seroquel) 12.5 mg PO QHS [facility] Last Admin: 12/10/18 21:06 Dose: 12.5 mg Documented by: Senna/Docusate Sodium (Senokot-S, Malathi-Colace) 2 tablet PO BID [facility] Last Admin: 12/11/18 07:41 Dose: Not Given Documented by: Medical Necessity - Tobacco Use Smoking Status: Never smoker Tobacco Use: Non-smoker Assessment/Plan 1. Lumbar canal stenosis status post laminectomy of L2-3, revision laminectomy of L4 and 5 as well as removal of hardware from L4 and 5 and fusion of L1-4 -Continue with PT/OT -Incision does not seem to be infected -Continue pain management per primary 2. HTN/HLD/history of SVT -Continue with her home blood pressure medications as well as her statin -Continue with her Cardizem for her SVT 3. CML -Stable -Continue with imatinib 4. Chronic renal failure stage III -Creatinine and GFR at baseline -Continue to monitor periodically 5. Depression/anxiety/sleep disorder -Stable -Continue with Prozac -Continue Seroquel 12.5 mg at night 6. Anemia possibly secondary to chronic disease versus acute blood loss from surgery -Transfuse 2 units at the [facility] after surgery -9.7 on admission -Repeat hemoglobin today was 10.3 DVT: Lovenox Code Visit Inpatient E&M: 85623 Subs Hosp L2
--- NOTE | 2018-12-11 11:34 | PN.NEURO_ITS ---
Subjective: Per nursing, patient c/o of RLS last night and mirapex was given, effective. Slept well last night. Patient denies pain at this time and is tolerating therapies. Denies further questions or concerns. - Physical Exam General: Alert, Oriented x3, Cooperative, - - can be forgetful at times HEENT: Atraumatic, PERRLA Oral: Moist Mucosa Neck: Supple, No JVD Lungs: Clear to auscultation, Normal air movement Cardiovascular: Regular rate, Regular Rhythm Abdomen: Bowel Sounds Present, Soft, Non Tender Extremities: No clubbing, No cyanosis, No edema Skin: Incision - rosibel intact to lumbar area, without redness or drng. Neurological: Cranial nerves II-XII grossly intact, Deep Tendon Reflexes 2+/4 and Symmetrical, Motor Exam 5/5 strength throughout Psych/Mental Status: Normal Affect, Appropriate, Alert and oriented to time, place, person, mood and affect - can be forgetful at times, redirects easily, cooperative and pleasant Vital Signs Temp Pulse Resp BP Pulse Ox 98.6 F 80 17 159/74 H 96 12/11/18 07:15 12/11/18 07:15 12/11/18 07:15 12/11/18 07:15 12/11/18 07:15 Oxygen Delivery Method Room Air Weight: 77.8 kg Body Mass Index (BMI) 34.3 Intake and Output for Last 24 Hours 12/09/18 12/10/18 12/11/18 23:59 23:59 23:59 Intake Total 720 / 720 240 / 240 490 / 490 Balance 720 / 720 240 / 240 490 / 490 Laboratory Tests Past 24 Hrs 12/11/18 05:20 WBC 6.9 RBC 3.05 L Hgb 10.3 L Hct 30.2 L MCV 99.0 MCH 33.8 H MCHC 34.1 RDW Std Deviation 51.6 H RDW Coeff of Claudia 14.1 Plt Count 401 MPV 8.7 Immature Gran % (Auto) 0.600 Neut % (Auto) 70.3 H Lymph % (Auto) 14.9 L [place] % (Auto) 9.7 Eos % (Auto) 3.9 Baso % (Auto) 0.6 Absolute Neuts (auto) 4.9 Absolute Lymphs (auto) 1.03 Nucleated RBC % 0 Medical Necessity - Tobacco Use Smoking Status: Never smoker Tobacco Use: Non-smoker Assessment/Plan The patient is a 77 year old F with PMH of CML, HTN, HLD, anxiety, depression, CKD stage III, GERD, retinitis pigmentosa, dysthymia, history of supraventricular tachycardia resolved, admitted to [facility] on 12/03/2018 for debility secondary to laminectomy and fusion, with a goal of returning home at or near her prior level of independence. On 11/28/2018, patient had Laminectomy L2-3, revision laminectomy L4-5, removal hardware L4-5, fusion L1-4, instrumentation L1-5, local bone, allograft by Dr. Hernandez due to stenosis, recurrent stenosis, and spondylolisthesis. Patient received 2 units of PRBC on 12/01/2018 d/t H&H 21.2/7.1, Hgb increased to 9.4 on 12/02/18 Patient lives alone in a one-story home with one-step to enter, prior to surgery she was independent with all ADLs and mobility. Patient stopped driving 2 years ago due to retinitis pigmentosa. Plan - PT for mobility - OT for ADLs - Analgesics as needed - Laminectomy, revision and fusion- Appt with Dr. Hernandez on 12/15/18 @ 1000- rosibel to be d/c at appt, wear LSO brace when OOB, ok to remove LSO to bathe and dress. Shower daily and ice prn - CML on Gleevec - HTN on HCTZ d/c - HLD on Pravachol - HX of SVT on cardizem - Anxiety xanax d/c was started on seroquel - dysthymia on Prozac, Pamelor - CKD stage III - GERD on Pepcid - Retinitis pigmentosa - hypokalemia K+ 3.3 K-Dur 20 meq x 3 doses recheck BMP on 12/07/18 K+ 3.4 - directed by hospitalist - Hyponatremia NA 133 encouraged fluids BMP on 12/07/18 NA 137 - RLS on mirapex - Insomnia on seroquel - GI/DVT prophylaxis on pepcid/Lovenox and SCDs. - Confusion and urinary hesitancy obtain UA - negative oxyir d/c and added norco - Bowel protocol - Fall precautions - Medical management per hospitalist-consult - F/U Dr. Hernandez and PCP
[2018-12-11 18:57] VITALS: BP 114/82; PULSE 83; RESP 16; TEMP 37.1; O2SAT 97
[2018-12-11] MEDS: QUEtiapine 25 MG Tablet 12.5 MG PO (21:20)
[2018-12-11] MEDS: Pramipexole Di-HCl 0.5 MG Tablet PO (21:21)
[2018-12-11] MEDS: dilTIAZem CD 240 MG Capsule PO (21:21)
[2018-12-11] MEDS: Pravastatin 40 MG Tablet PO (21:21)
[2018-12-11] MEDS: Calcitriol 0.25 MCG Capsule PO (21:21)
[2018-12-11] MEDS: FLUoxetine 20 MG Capsule 40 MG PO (21:21)
[2018-12-11 22:00] VITALS: PULSE 83; RESP 16; O2SAT 97
[2018-12-12] MEDS: HYDROcodone Bitartrate/Apap 5/325 Tablet PO ×2 (05:37→21:33)
[2018-12-12] MEDS: Enoxaparin 40 MG/0.4 ML Syringe SC (05:37)
[2018-12-12 07:25] VITALS: BP 135/69; PULSE 80; RESP 18; TEMP 36.8; O2SAT 96
[2018-12-12] MEDS: Multivitamins,Therapeutic Tablet 1 TABLET PO (07:58)
[2018-12-12] MEDS: Famotidine 20 MG Tablet 40 MG PO ×2 (07:58→21:23)
[2018-12-12] MEDS: hydroCHLOROthiazide 25 MG Tablet PO (07:58)
--- NOTE | 2018-12-12 10:03 | PCM.PN.NEU ---
Subjective: Per nursing, no issues overnight. Per patient, slept well last night without difficulty. Patient continues to tolerate therapies, pain is controlled and denies further questions or concerns. - Physical Exam General: Alert, Oriented x3, Cooperative, - - can be forgetful HEENT: Atraumatic, PERRLA, - - left and right hemianopia Oral: Moist Mucosa Neck: Supple, No JVD Lungs: Clear to auscultation, Normal air movement Cardiovascular: Regular rate, Regular Rhythm, No Ectopic Activity Abdomen: Bowel Sounds Present, Soft, Non Tender Extremities: No clubbing, No cyanosis, No edema Skin: Incision - rosibel intact to lumbar area, without redness or drng noted Neurological: Cranial nerves II-XII grossly intact - except left and right hemianopia- chronic, Deep Tendon Reflexes 2+/4 and Symmetrical, Motor Exam 5/5 strength throughout Psych/Mental Status: Normal Affect, Appropriate, Alert and oriented to time, place, person, mood and affect - can be forgetful, redirects easily, cooperative and pleasant Vital Signs Temp Pulse Resp BP Pulse Ox 98.3 F 80 18 135/69 H 96 12/12/18 07:25 12/12/18 07:25 12/12/18 07:25 12/12/18 07:25 12/12/18 07:25 Oxygen Delivery Method Room Air Weight: 77.8 kg Body Mass Index (BMI) 34.3 Intake and Output for Last 24 Hours 12/10/18 12/11/18 12/12/18 23:59 23:59 23:59 Intake Total 240 / 240 490 / 490 240 / 240 Balance 240 / 240 490 / 490 240 / 240 Medical Necessity - Tobacco Use Smoking Status: Never smoker Tobacco Use: Non-smoker Assessment/Plan The patient is a 77 year old F with PMH of CML, HTN, HLD, anxiety, depression, CKD stage III, GERD, retinitis pigmentosa, dysthymia, history of supraventricular tachycardia resolved, admitted to [facility] on 12/03/2018 for debility secondary to laminectomy and fusion, with a goal of returning home at or near her prior level of independence. On 11/28/2018, patient had Laminectomy L2-3, revision laminectomy L4-5, removal hardware L4-5, fusion L1-4, instrumentation L1-5, local bone, allograft by Dr. Hernandez due to stenosis, recurrent stenosis, and spondylolisthesis. Patient received 2 units of PRBC on 12/01/2018 d/t H&H 21.2/7.1, Hgb increased to 9.4 on 12/02/18 Patient lives alone in a one-story home with one-step to enter, prior to surgery she was independent with all ADLs and mobility. Patient stopped driving 2 years ago due to retinitis pigmentosa. Plan - PT for mobility - OT for ADLs - Analgesics as needed - Laminectomy, revision and fusion- Appt with Dr. Hernandez on 12/15/18 @ 1000- rosibel to be d/c at appt, wear LSO brace when OOB, ok to remove LSO to bathe and dress. Shower daily and ice prn - CML on Gleevec - HTN on HCTZ d/c - HLD on Pravachol - HX of SVT on cardizem - Anxiety xanax d/c was started on seroquel - dysthymia on Prozac, Pamelor - CKD stage III - GERD on Pepcid - Retinitis pigmentosa - hypokalemia K+ 3.3 K-Dur 20 meq x 3 doses recheck BMP on 12/07/18 K+ 3.4 - directed by hospitalist - Hyponatremia NA 133 encouraged fluids BMP on 12/07/18 NA 137 - RLS on mirapex - Insomnia on seroquel - GI/DVT prophylaxis on pepcid/Lovenox and SCDs. - Confusion and urinary hesitancy obtain UA - negative oxyir d/c and added norco - improving - Bowel protocol - Fall precautions - Medical management per hospitalist-consult - F/U Dr. Hernandez and PCP
[2018-12-12 18:29] VITALS: BP 112/53; PULSE 63; RESP 16; TEMP 37.1; O2SAT 96
[2018-12-12] MEDS: Pramipexole Di-HCl 0.5 MG Tablet PO (21:23)
[2018-12-12] MEDS: dilTIAZem CD 240 MG Capsule PO (21:23)
[2018-12-12] MEDS: FLUoxetine 20 MG Capsule 40 MG PO (21:24)
[2018-12-12] MEDS: QUEtiapine 25 MG Tablet 12.5 MG PO (21:24)
[2018-12-12] MEDS: Calcitriol 0.25 MCG Capsule PO (21:24)
[2018-12-12] MEDS: Pravastatin 40 MG Tablet PO (21:24)
[2018-12-12] MEDS: Senna/Docusate Sodium 1 Tablet 2 TABLET PO (21:26)
[2018-12-12 22:00] VITALS: PULSE 63; RESP 16; O2SAT 96
[2018-12-13] MEDS: HYDROcodone Bitartrate/Apap 5/325 Tablet PO (05:49)
[2018-12-13] MEDS: Enoxaparin 40 MG/0.4 ML Syringe SC (05:50)
[2018-12-13 07:00] VITALS: BP 145/75; PULSE 88; RESP 18; TEMP 36.4; O2SAT 97
--- NOTE | 2018-12-13 07:09 | NURSING ---
Incision cleaned with sterile water and ABD dressing changed following shower. pt tolerated well.
[2018-12-13] MEDS: hydroCHLOROthiazide 25 MG Tablet PO (08:42)
[2018-12-13] MEDS: Multivitamins,Therapeutic Tablet 1 TABLET PO (08:42)
[2018-12-13] MEDS: Famotidine 20 MG Tablet 40 MG PO ×2 (08:42→20:52)
--- NOTE | 2018-12-13 08:54 | PN.NEURO_ITS ---
Subjective: Nursing reported patient was up multiple times throught the night for bathroom, but patient stated she slept well last night and did not remember being up a lot. Patient continues to tolerate therapy and pain is controlled. Denies further questions or concerns. - Physical Exam General: Alert, Oriented x3, Cooperative, - - can be forgetful HEENT: Atraumatic, PERRLA, - - left and right hemianopia Oral: Moist Mucosa Neck: Supple, No JVD Lungs: Clear to auscultation, Normal air movement Cardiovascular: Regular rate, Regular Rhythm Abdomen: Bowel Sounds Present, Soft, Non Tender Skin: Incision - rosibel intact to lumbar area, without redness or drng Neurological: Cranial nerves II-XII grossly intact - except rigfht and left hemianopia-chronic, Deep Tendon Reflexes 2+/4 and Symmetrical, Motor Exam 5/5 strength throughout Psych/Mental Status: Normal Affect, Appropriate, Alert and oriented to time, place, person, mood and affect - can be forgetful, redirects easily, cooperative and pleasant Vital Signs Temp Pulse Resp BP Pulse Ox 97.6 F L 88 18 145/75 H 97 12/13/18 07:00 12/13/18 07:00 12/13/18 07:00 12/13/18 07:00 12/13/18 07:00 Oxygen Delivery Method Room Air Weight: 73.5 kg Body Mass Index (BMI) 34.3 Intake and Output for Last 24 Hours 12/11/18 12/12/18 12/13/18 23:59 23:59 23:59 Intake Total 490 / 490 480 / 480 180 / 180 Balance 490 / 490 480 / 480 180 / 180 Medical Necessity - Tobacco Use Smoking Status: Never smoker Tobacco Use: Non-smoker Assessment/Plan The patient is a 77 year old F with PMH of CML, HTN, HLD, anxiety, depression, CKD stage III, GERD, retinitis pigmentosa, dysthymia, history of supraventricular tachycardia resolved, admitted to [facility] on 12/03/2018 for debility secondary to laminectomy and fusion, with a goal of returning home at or near her prior level of independence. On 11/28/2018, patient had Laminectomy L2-3, revision laminectomy L4-5, removal hardware L4-5, fusion L1-4, in strumentation L1-5, local bone, allograft by Dr. Hernandez due to stenosis, recurrent stenosis, and spondylolisthesis. Patient received 2 units of PRBC on 12/01/2018 d/t H&H 21.2/7.1, Hgb increased to 9.4 on 12/02/18 Patient lives alone in a one-story home with one-step to enter, prior to surgery she was independent with all ADLs and mobility. Patient stopped driving 2 years ago due to retinitis pigmentosa. Plan - PT for mobility - OT for ADLs - Analgesics as needed - Laminectomy, revision and fusion- Appt with Dr. Hernandez on 12/15/18 @ 1000- rosibel to be d/c at appt, wear LSO brace when OOB, ok to remove LSO to bathe and dress. Shower daily and ice prn - CML on Gleevec - HTN on HCTZ - HLD on Pravachol - HX of SVT on cardizem - Anxiety xanax d/c was started on seroquel - dysthymia on Prozac, Pamelor - CKD stage III - GERD on Pepcid - Retinitis pigmentosa - hypokalemia K+ 3.3 K-Dur 20 meq x 3 doses recheck BMP on 12/07/18 K+ 3.4 - directed by hospitalist - Hyponatremia NA 133 encouraged fluids BMP on 12/07/18 NA 137 - RLS on mirapex - Insomnia on seroquel - GI/DVT prophylaxis on pepcid/Lovenox and SCDs. - Confusion and urinary hesitancy obtain UA - negative oxyir d/c and added norco - improving - Bowel protocol - Fall precautions - Medical management per hospitalist-consult - F/U Dr. Hernandez and PCP
--- NOTE | 2018-12-13 11:58 | CASEMGMT ---
Social Work IDT met with patient and daughter for Team Meeting. Discussed progress in therapy. Pt is SBA using FWW, SBA for ADLs with some verbal cues for safety. Pt improving on memory, but still some impairment. Dtr will be able to stay with pt initially at night as there are some safety concerns. [place] will be removed 12/18. Pt requesting to DC home 12/16. IDT and dtr agreeable. Pt has no DME needs. Provided list of [facility] agencies - pt/dtr had no preference and agreed to [facility] for PT/OT/ST. Referral made. Plan: DC home alone with dtr support 12/16 with [facility] PT/OT/ST. Claudia Aviles, [employer]
[2018-12-13 19:31] VITALS: BP 125/63; PULSE 84; RESP 16; TEMP 37.1; O2SAT 98
[2018-12-13] MEDS: Senna/Docusate Sodium 1 Tablet 2 TABLET PO (20:52)
[2018-12-13] MEDS: dilTIAZem CD 240 MG Capsule PO (20:52)
[2018-12-13] MEDS: Pravastatin 40 MG Tablet PO (20:53)
[2018-12-13] MEDS: Pramipexole Di-HCl 0.5 MG Tablet PO (20:53)
[2018-12-13] MEDS: Calcitriol 0.25 MCG Capsule PO (20:54)
[2018-12-13] MEDS: FLUoxetine 20 MG Capsule 40 MG PO (20:54)
[2018-12-13] MEDS: QUEtiapine 25 MG Tablet 12.5 MG PO (20:54)
[2018-12-13 22:00] VITALS: PULSE 84
[2018-12-14] MEDS: Enoxaparin 40 MG/0.4 ML Syringe SC (06:13)
[2018-12-14] MEDS: HYDROcodone Bitartrate/Apap 5/325 Tablet PO ×2 (06:16→20:20)
--- NOTE | 2018-12-14 08:20 | PCM.PN.NEU ---
Subjective: Per patient, slept well last night. Denies pain at this time and is tolerating therapies well. Denies further questions or concerns. - Physical Exam General: Alert, Oriented x3, Cooperative HEENT: Atraumatic, PERRLA, - - right and left hemianopia-chronic Oral: Moist Mucosa Neck: Supple, No JVD Lungs: Clear to auscultation, Normal air movement Cardiovascular: Regular rate, Regular Rhythm Abdomen: Bowel Sounds Present, Soft, Non Tender Extremities: No clubbing, No cyanosis, No edema Skin: Incision - rosibel intact to lumabar area, without redness or drng Neurological: Cranial nerves II-XII grossly intact - except left and right hemianopia-chronic, Deep Tendon Reflexes 2+/4 and Symmetrical, Motor Exam 5/5 strength throughout Psych/Mental Status: Normal Affect, Appropriate, Alert and oriented to time, place, person, mood and affect Vital Signs Temp Pulse Resp BP Pulse Ox 98.8 F 84 16 125/63 H 98 12/13/18 19:31 12/13/18 22:00 12/13/18 19:31 12/13/18 19:31 12/13/18 19:31 Oxygen Delivery Method Room Air Weight: 73.5 kg Body Mass Index (BMI) 34.3 Intake and Output for Last 24 Hours 12/12/18 12/13/18 12/14/18 23:59 23:59 23:59 Intake Total 480 / 480 540 / 540 Balance 480 / 480 540 / 540 Medical Necessity - Tobacco Use Smoking Status: Never smoker Tobacco Use: Non-smoker Assessment/Plan The patient is a 77 year old F with PMH of CML, HTN, HLD, anxiety, depression, CKD stage III, GERD, retinitis pigmentosa, dysthymia, history of supraventricular tachycardia resolved, admitted to [facility] on 12/03/2018 for debility secondary to laminectomy and fusion, with a goal of returning home at or near her prior level of independence. On 11/28/2018, patient had Laminectomy L2-3, revision laminectomy L4-5, removal hardware L4-5, fusion L1-4, instrumentation L1-5, local bone, allograft by Dr. Hernandez due to stenosis, recurrent stenosis, and spondylolisthesis. Patient received 2 units of PRBC on 12/01/2018 d/t H&H 21.2/7.1, Hgb increased to 9.4 on 12/02/18 Patient lives alone in a one-story home with one-step to enter, prior to surgery she was independent with all ADLs and mobility. Patient stopped driving 2 years ago due to retinitis pigmentosa. Plan - PT for mobility - OT for ADLs - Analgesics as needed - Laminectomy, revision and fusion- Appt with Dr. Hernandez on 12/18/18 - rosibel to be d/c at appt, wear LSO brace when OOB, ok to remove LSO to bathe and dress. Shower daily and ice prn - CML on Gleevec - HTN on HCTZ - HLD on Pravachol - HX of SVT on cardizem - Anxiety xanax d/c was started on seroquel - dysthymia on Prozac, Pamelor - CKD stage III - GERD on Pepcid - Retinitis pigmentosa - hypokalemia K+ 3.3 K-Dur 20 meq x 3 doses recheck BMP on 12/07/18 K+ 3.4 recheck K+ today - Hyponatremia NA 133 encouraged fluids BMP on 12/07/18 NA 137 - RLS on mirapex - Insomnia on seroquel - GI/DVT prophylaxis on pepcid/Lovenox and SCDs. - Confusion and urinary hesitancy obtain UA - negative oxyir d/c and added norco - improving - Bowel protocol - Fall precautions - Medical management per hospitalist-consult - F/U Dr. Hernandez and PCP D/C home on 12/16/18 with home PT/OT/ST
[2018-12-14 09:17] LABS: Potassium 3.5 mmol/L (3.5-5.1)
[2018-12-14 09:24] VITALS: BP 151/65; PULSE 80; RESP 22; TEMP 36.7; O2SAT 97
[2018-12-14] MEDS: hydroCHLOROthiazide 25 MG Tablet PO (09:33)
[2018-12-14] MEDS: Famotidine 20 MG Tablet 40 MG PO ×2 (09:33→20:23)
[2018-12-14] MEDS: Multivitamins,Therapeutic Tablet 1 TABLET PO (09:33)
--- NOTE | 2018-12-14 10:06 | PN_ITS ---
Subjective: Doing very well with therapy and is excited that she can finally walk around the halls on her own. Plan is for discharge on Tuesday Vitals/I&O's: Vital Signs Temp Pulse Resp BP Pulse Ox 98.1 F 80 22 H 151/65 H 97 12/14/18 09:24 12/14/18 09:24 12/14/18 09:24 12/14/18 09:24 12/14/18 09:24 Oxygen Delivery Method Room Air Weight: 162 lb 0.636 oz Body Mass Index (BMI) 34.3 Intake and Output for Last 24 Hours 12/12/18 12/13/18 12/14/18 23:59 23:59 23:59 Intake Total 480 / 480 540 / 540 240 / 240 Balance 480 / 480 540 / 540 240 / 240 General: Alert, Oriented x3, Cooperative, No apparent distress HEENT: Atraumatic, PERRLA, EOMI, Normocephalic Oral: Moist Mucosa Neck: Supple, No JVD Lungs: Clear to auscultation, Normal air movement, No rhonchi, No wheeze, No rales Cardiovascular: Regular rate, Regular Rhythm, Normal S1, Normal S2, No murmurs Abdomen: Soft, Non Tender, Non-Distended, No Hepato-splenomegaly Extremities: No edema, Capillary Refill Less than 3 Seconds Skin: No rashes, No breakdown, Incision - C/D/I Neurological: Neuro grossly intact, Sensory exam intact to light touch and pain Psych/Mental Status: Normal Affect, Appropriate Laboratory Results 12/14/18 09:00: Potassium 3.5 Current Medications Hydrocodone Bitart/Acetaminophen (Andrews 5mg-325mg) 1 - 2 tablet PO Q6H PRN PRN PRN Reason: PAIN Last Admin: 12/14/18 06:16 Dose: 2 tablet Documented by: Bisacodyl (Dulcolax) 10 mg RECTAL .PRN X 1 PRN PRN Reason: Constipation Calcitriol (Rocaltrol) 0.25 mcg PO QHS [facility] Last Admin: 12/13/18 20:54 Dose: 0.25 mcg Documented by: Diltiazem HCl (Cardizem Cd) 240 mg PO QHS [facility] Last Admin: 12/13/18 20:52 Dose: 240 mg Documented by: Enoxaparin Sodium (Lovenox) 40 mg SC DAILY@0600 [facility] Last Admin: 12/14/18 06:13 Dose: 40 mg Documented by: Famotidine (Pepcid) 40 mg PO BID [facility] Last Admin: 12/14/18 09:33 Dose: 40 mg Documented by: Fluoxetine HCl (Prozac) 40 mg PO QHS [facility] Last Admin: 12/13/18 20:54 Dose: 40 mg Documented by: Hydrochlorothiazide (Hctz) 25 mg PO DAILY [facility] Last Admin: 12/14/18 09:33 Dose: 25 mg Documented by: Imatinib Mesylate (Gleevec) 400 mg PO QHS [facility] Last Admin: 12/13/18 20:51 Dose: 400 mg Documented by: Loperamide HCl (Imodium) 2 mg PO TID PRN PRN PRN Reason: DIARRHEA/LOOSE STOOLS Last Admin: 12/08/18 21:09 Dose: 2 mg Documented by: Magnesium Hydroxide (Milk Of Magnesia) 30 ml PO .PRN X 1 PRN PRN Reason: Constipation Last Admin: 12/03/18 18:13 Dose: 30 ml Documented by: Multivit[facility] ([facility]ivitamin) [facility] Last Admin: 12/14/18 09:33 Dose: 1 tablet Documented by: Nutritional Formula (Richard - [place] Flavor) [facility] Last Admin: 12/14/18 09:32 Dose: 1 packet Documented by: Potassium Chloride (K-Dur) 20 meq [facility] Last Admin: 12/14/18 09:32 Dose: 20 meq Documented by: Pramipexole [facility]hydrochloride ([facility]apex) [facility] Last Admin: 12/13/18 20:53 Dose: 0.5 mg Documented by: Pravastatin Sodium (Pravachol) 40 mg PO QHS [facility] Last Admin: 12/13/18 20:53 Dose: 40 mg Documented by: Quetiapine Fumarate (Seroquel) [facility] Last Admin: 12/13/18 20:54 Dose: 12.5 mg Documented by: Senna/Docusate Sodium (Senokot-S, Malathi-Colace) 2 tablet PO BID [facility] Last Admin: 12/14/18 09:33 Dose: Not Given Documented by: Medical Necessity - Tobacco Use Smoking Status: Never smoker Tobacco Use: Non-smoker Assessment/Plan 1. Lumbar canal stenosis status post laminectomy of L2-3, revision laminectomy of L4 and 5 as well as removal of hardware from L4 and 5 and fusion of L1-4 -Continue with PT/OT -Incision does not seem to be infected -Continue pain management per primary 2. HTN/HLD/history of SVT -Continue with her home blood pressure medications as well as her statin -Continue with her Cardizem for her SVT 3. CML -Stable -Continue with imatinib 4. Chronic renal failure stage III -Creatinine and GFR at baseline -Continue to monitor periodically 5. Depression/anxiety/sleep disorder -Stable -Continue with Prozac -Continue Seroquel 12.5 mg at night 6. Anemia possibly secondary to chronic disease versus acute blood loss from surgery -Transfuse 2 units at the [facility] after surgery -9.7 on admission -Repeat hemoglobin on Tuesday was 10.3 DVT: Lovenox Code Visit Inpatient E&M: 47834 Subs Hosp L2
[2018-12-14 19:23] VITALS: BP 135/71; PULSE 90; RESP 18; TEMP 36.7; O2SAT 99
[2018-12-14] MEDS: Senna/Docusate Sodium 1 Tablet 2 TABLET PO (20:21)
[2018-12-14] MEDS: Pramipexole Di-HCl 0.5 MG Tablet PO (20:22)
[2018-12-14] MEDS: dilTIAZem CD 240 MG Capsule PO (20:22)
[2018-12-14] MEDS: Calcitriol 0.25 MCG Capsule PO (20:23)
[2018-12-14] MEDS: FLUoxetine 20 MG Capsule 40 MG PO (20:23)
[2018-12-14] MEDS: Pravastatin 40 MG Tablet PO (20:23)
[2018-12-14] MEDS: QUEtiapine 25 MG Tablet 12.5 MG PO (20:24)
[2018-12-14 20:25] VITALS: PULSE 90; RESP 18; O2SAT 99
[2018-12-15] MEDS: HYDROcodone Bitartrate/Apap 5/325 Tablet PO ×2 (02:22→21:27)
[2018-12-15] MEDS: Enoxaparin 40 MG/0.4 ML Syringe SC (06:08)
[2018-12-15] MEDS: Famotidine 20 MG Tablet 40 MG PO ×2 (07:39→20:41)
[2018-12-15] MEDS: Multivitamins,Therapeutic Tablet 1 TABLET PO (07:39)
[2018-12-15] MEDS: hydroCHLOROthiazide 25 MG Tablet PO (07:39)
[2018-12-15 08:13] VITALS: BP 133/85; PULSE 93; RESP 16; TEMP 36.7; O2SAT 96
--- NOTE | 2018-12-15 08:41 | DCINST_ITS ---
- Discharge Diagnoses Reason(s) for Visit for Discharge Instructions: debility secondary to laminectomy and fusion You will use the following diet at home:: No restrictions Your food should be the consistency of: Regular Your liquids should be the consistency of: Regular/Thin Discharge Activity: Return to Normal Activity, May Not Drive, May Shower, Use Walker Weight Bearing Status: Weight bearing as tolerated Call your doctor if your incision/area has: Continuous Slow Oozing, Sudden Increased Bleeding, Increased Pain/ Swelling, Increased Redness, Foul Smelling Discharge, Swelling at the incision site Call your doctor if you observe: Fever of 101 or Higher, Coldness, Increased Pain, Numbness or Tingling, Change in Color, Inability to urinate, Inability to have a bowel movement, Shortness of breath, Dizziness, Fainting spells, Swelling in the ankles, Chest pain, Prolonged hiccoughing, Increased palpitations (irregular heartbeat), Calf discomfort, Uncontrolled pain Additional Instructions: Wear brace with activity. Nissa will be discontinued at follow up appt with Dr. Hernandez Allergies/Adverse Reactions: Allergies No Known Allergies Allergy (Verified 12/03/18 15:36) Medications to take at Discharge Argin/Glut/Cahmb/Collag/Mv-Min [Richard Packet] 1 ea PO BIDCM #60 powd.pack 12/15/18 Calcitriol [Rocaltrol] 0.25 mcg PO QHS cap 12/15/18 Diltiazem CD [Cardizem CD] 240 mg PO QHS cap 12/15/18 Fluoxetine [Prozac] 40 mg PO QHS cap 12/15/18 Hydrochlorothiazide [Hctz] 25 mg PO DAILY tab 12/15/18 Hydrocodone Bitart/Apap 5-325 [Townsend 5/325] 1 - 2 tab PO Q6H PRN PRN #20 tab 12/15/18 Imatinib Mesylate [Gleevec] 400 mg PO QHS tab 12/15/18 Multivitamins,Therapeutic [Multivitamin] 1 tab PO DAILYCM tab 12/15/18 Potassium Chloride [K-Dur] 20 meq PO DAILYCM #30 tab 12/15/18 Pramipexole Di-HCl [Mirapex] 0.5 mg PO QHS #30 tab 12/15/18 Pravastatin [Pravachol] 40 mg PO QHS tab 12/15/18 Quetiapine Fumarate [Seroquel] 12.5 mg PO QHS #15 tab 12/15/18 The following prescriptions were given: Argin/Glut/Cahmb/Collag/Mv-Min [Richard Packet] 1 ea PO BIDCM #60 powd.pack Transmission Status: Sent to [facility] Potassium Chloride [K-Dur] 20 meq PO DAILYCM #30 tab Transmission Status: Received by [facility] Pramipexole Di-HCl [Mirapex] 0.5 mg PO QHS #30 tab Transmission Status: Received by [facility] Hydrocodone Bitart/Apap 5-325 [Townsend 5/325] 1 - 2 tab PO Q6H PRN PRN #20 tab PRN Reason: Pain Transmission Status: Received by [facility] Quetiapine Fumarate [Seroquel] 12.5 mg PO QHS #15 tab Transmission Status: Received by [facility] Test Results: Test results from this visit will be discussed in further detail at your follow- up appointment, if applicable. Please Follow Up With: Dr. Ishaan Hernandez When: 12/18/18 Please Follow Up With: [facility] When: 4 weeks Proposed Discharge Date: 12/16/18
--- NOTE | 2018-12-15 08:45 | DS.PCM_ITS ---
Rehab Discharge Summary DATE OF ADMISSION: 12/03/18 DATE OF DISCHARGE: 12/16/18 - Rehab Diagnosis Debility secondary to laminectomy and fusion Subjective: Per nursing, no issues overnight. Patient will be discharged home on 12/16/18 with home PT/OT/ST. Patient tolerating therapies and pain is controlled. Denies further questions or concerns. - Physical Exam General: Alert, Oriented x3, Cooperative HEENT: Atraumatic, PERRLA, - - chronic left and right hemianopia Oral: Moist Mucosa Neck: Supple, No JVD Lungs: Clear to auscultation, Normal air movement Cardiovascular: Regular rate, Regular Rhythm Abdomen: Bowel Sounds Present, Soft, Non Tender Extremities: No clubbing, No cyanosis, No edema Skin: Incision - rosibel intact to lumbar area, without redness or drng Neurological: Cranial nerves II-XII grossly intact - except right and left hemianopia-chronic, Deep Tendon Reflexes 2+/4 and Symmetrical, Motor Exam 5/5 strength throughout Psych/Mental Status: Normal Affect, Appropriate, Alert and oriented to time, place, person, mood and affect - can be forgetful, easily redirects, cooperative and pleasant Vital Signs Temp Pulse Resp BP Pulse Ox 98.1 F 93 16 133/85 H 96 12/15/18 08:13 12/15/18 08:13 12/15/18 08:13 12/15/18 08:13 12/15/18 08:13 Oxygen Delivery Method Room Air Weight: 73.5 kg Body Mass Index (BMI) 34.3 Intake and Output for Last 24 Hours 12/13/18 12/14/18 12/15/18 23:59 23:59 23:59 Intake Total 540 / 540 720 / 720 240 / 240 Balance 540 / 540 720 / 720 240 / 240 Laboratory Tests Past 24 Hrs 12/14/18 09:00 Potassium 3.5 Discharge Diet: No Restrictions Discharge Activity: Return to Normal Activity, May Not Drive, May Shower, Use Walker Weight Bearing Status: Weight bearing as tolerated Call your doctor if your incision/area has: Continuous Slow Oozing, Sudden Increased Bleeding, Increased Pain/ Swelling, Increased Redness, Foul Smelling Discharge, Swelling at the incision site Call your doctor if you observe: Fever of 101 or Higher, Coldness, Increased Pain, Numbness or Tingling, Change in Color, Inability to urinate, Inability to have a bowel movement, Shortness of breath, Dizziness, Fainting spells, Swelling in the ankles, Chest pain, Prolonged hiccoughing, Increased palpitations (irregular heartbeat), Calf discomfort, Uncontrolled pain Cleanse incision/area with: Soap & Water Home Medications: Medications to take at Discharge Argin/Glut/Cahmb/Collag/Mv-Min [Richard Packet] 1 ea PO BIDCM #60 powd.pack 12/15/18 Calcitriol [Rocaltrol] 0.25 mcg PO QHS cap 12/15/18 Diltiazem CD [Cardizem CD] 240 mg PO QHS cap 12/15/18 Fluoxetine [Prozac] 40 mg PO QHS cap 12/15/18 Hydrochlorothiazide [Hctz] 25 mg PO DAILY tab 12/15/18 Hydrocodone Bitart/Apap 5-325 [Seco 5/325] 1 - 2 tab PO Q6H PRN PRN #20 tab 12/15/18 Imatinib Mesylate [Gleevec] 400 mg PO QHS tab 12/15/18 Multivitamins,Therapeutic [Multivitamin] 1 tab PO DAILYCM tab 12/15/18 Potassium Chloride [K-Dur] 20 meq PO DAILYCM #30 tab 12/15/18 Pramipexole Di-HCl [Mirapex] 0.5 mg PO QHS #30 tab 12/15/18 Pravastatin [Pravachol] 40 mg PO QHS tab 12/15/18 Quetiapine Fumarate [Seroquel] 12.5 mg PO QHS #15 tab 12/15/18 Following Prescrptions Were Given to Patient: Argin/Glut/Cahmb/Collag/Mv-Min [Richard Packet] 1 ea PO BIDCM #60 powd.pack Transmission Status: Sent to [facility] Potassium Chloride [K-Dur] 20 meq PO DAILYCM #30 tab Transmission Status: Received by [facility] Pramipexole Di-HCl [Mirapex] 0.5 mg PO QHS #30 tab Transmission Status: Received by [facility] Hydrocodone Bitart/Apap 5-325 [Seco 5/325] 1 - 2 tab PO Q6H PRN PRN #20 tab PRN Reason: Pain Transmission Status: Received by [facility] Quetiapine Fumarate [Seroquel] 12.5 mg PO QHS #15 tab Transmission Status: Received by [facility] Please Follow Up With: Dr. Ishaan Hernandez When: 12/18/18 Please Follow Up With: Primary Care Physcian When: 4 weeks Additional Instructions: Wear brace with activity. Rosibel will be discontinued at Dr. Hernandez follow up appt. Disposition: Home with Home Health Patient Condition:: Stable Rehab Course [The patient is a 77 year old F with PMH of CML, HTN, HLD, anxiety, depression, CKD stage III, GERD, retinitis pigmentosa, dysthymia, history of supraventricular tachycardia resolved, admitted to [facility] on 12/03/2018 for debility secondary to laminectomy and fusion, with a goal of returning home at or near her prior level of independence. On 11/28/2018, patient had Laminectomy L2-3, revision laminectomy L4-5, removal hardware L4-5, fusion L1-4, instrumentation L1-5, local bone, allograft by Dr. Hernandez due to stenosis, recurrent stenosis, and spondylolisthesis. Patient received 2 units of PRBC on 12/01/2018 d/t H&H 21.2/7.1, Hgb increased to 9.4 on 12/02/18 Patient lives alone in a one-story home with one-step to enter, prior to surgery she was independent with all ADLs and mobility. Patient stopped driving 2 years ago due to retinitis pigmentosa. During IP RU course patient developed hypokalemia and on 11/24/18 K+ 3.5, will continue on K-Dur 20 meq. Patient had confusion and insomnia, oxyir, xanax, amitriptyline discontinued and was started on seroquel 12.5 mg at bedtime. Confusion improved and resting better at night. As well as RLS, which was started on mirapex 0.5 mg at bedtime, effective. UA was obtained, negative. Hyponatremia adn on 12/07/18 NA 137, resolved and fluids are encouraged. Rosibel intact to lumbar area, without redness or drng. No S/SX of infection noted. Patient has f/u appt with DR. Hernandez on 12/18/18 and rosibel will discontinued at appt. Patient to continue to wear LSO brace with activity. Patient will be discharged home on 12/16/18 with home PT/OT/ST and to f/u with PCP and Dr. Hernandez. Meaningful Use Info Meaningful Use Diagnoses (Choose all that apply): None applicable
[2018-12-15 19:27] VITALS: BP 118/76; PULSE 78; RESP 16; TEMP 36.7; O2SAT 96
[2018-12-15] MEDS: QUEtiapine 25 MG Tablet 12.5 MG PO (20:38)
[2018-12-15] MEDS: Senna/Docusate Sodium 1 Tablet 2 TABLET PO (20:39)
[2018-12-15] MEDS: FLUoxetine 20 MG Capsule 40 MG PO (20:40)
[2018-12-15] MEDS: Calcitriol 0.25 MCG Capsule PO (20:40)
[2018-12-15] MEDS: Pramipexole Di-HCl 0.5 MG Tablet PO (20:41)
[2018-12-15] MEDS: Pravastatin 40 MG Tablet PO (20:41)
[2018-12-15] MEDS: dilTIAZem CD 240 MG Capsule PO (20:42)
[2018-12-16] MEDS: HYDROcodone Bitartrate/Apap 5/325 Tablet PO ×2 (05:20→14:25)
[2018-12-16] MEDS: Enoxaparin 40 MG/0.4 ML Syringe SC (05:21)
[2018-12-16 07:27] VITALS: BP 136/67; PULSE 74; RESP 16; TEMP 36.6; O2SAT 95
[2018-12-16] MEDS: hydroCHLOROthiazide 25 MG Tablet PO (08:25)
[2018-12-16] MEDS: Multivitamins,Therapeutic Tablet 1 TABLET PO (08:25)
[2018-12-16] MEDS: Famotidine 20 MG Tablet 40 MG PO (08:25)
[2018-12-16] MEDS: Senna/Docusate Sodium 1 Tablet 2 TABLET PO (08:26)
--- NOTE | 2018-12-16 11:13 | PN_ITS ---
Subjective: Feels great and is ready to go home today. No acute events overnight. She did have an episode of emesis today which she states happens fairly frequently, and she sees her PCP for this issue. She felt better after she had her emesis and was able to take her pills without issue. Vitals/I&O's: Vital Signs Temp Pulse Resp BP Pulse Ox 98 F 74 16 136/67 H 95 12/16/18 07:27 12/16/18 07:27 12/16/18 07:27 12/16/18 07:27 12/16/18 07:27 Oxygen Delivery Method Room Air Weight: 162 lb 0.636 oz Body Mass Index (BMI) 34.3 Intake and Output for Last 24 Hours 12/14/18 12/15/18 12/16/18 23:59 23:59 23:59 Intake Total 720 / 720 480 / 480 220 / 220 Balance 720 / 720 480 / 480 220 / 220 General: Alert, Oriented x3, Cooperative, No apparent distress HEENT: Atraumatic, PERRLA, EOMI, Normocephalic Oral: Moist Mucosa Neck: Supple, No JVD Lungs: Clear to auscultation, Normal air movement, No rhonchi, No wheeze, No rales Cardiovascular: Regular rate, Regular Rhythm, Normal S1, Normal S2, No murmurs Abdomen: Soft, Non Tender, Non-Distended, No Hepato-splenomegaly Extremities: No edema, Capillary Refill Less than 3 Seconds Skin: No rashes, No breakdown, Incision - C/D/I Neurological: Neuro grossly intact, Sensory exam intact to light touch and pain Psych/Mental Status: Normal Affect, Appropriate Current Medications Hydrocodone Bitart/Acetaminophen (Fallentimber 5mg-325mg) 1 - 2 tablet PO Q6H PRN PRN PRN Reason: PAIN Last Admin: 12/16/18 05:20 Dose: 1 tablet Documented by: Bisacodyl (Dulcolax) 10 mg RECTAL .PRN X 1 PRN PRN Reason: Constipation Calcitriol (Rocaltrol) 0.25 mcg PO QHS [facility] Last Admin: 12/15/18 20:40 Dose: 0.25 mcg Documented by: Diltiazem HCl (Cardizem Cd) 240 mg PO QHS [facility] Last Admin: 12/15/18 20:42 Dose: 240 mg Documented by: Enoxaparin Sodium (Lovenox) 40 mg SC DAILY@0600 [facility] Last Admin: 12/16/18 05:21 Dose: 40 mg Documented by: Famotidine (Pepcid) 40 mg PO BID [facility] Last Admin: 12/16/18 08:25 Dose: 40 mg Documented by: [facility]) [facility] Last Admin: 12/15/18 20:40 Dose: 40 mg Documented by: Hydrochlorothiazide (Hctz) 25 mg PO DAILY [facility] Last Admin: 12/16/18 08:25 Dose: 25 mg Documented by: Imatinib Mesylate (Gleevec) [facility] Last Admin: 12/15/18 20:42 Dose: 400 mg Documented by: Loperamide HCl (Imodium) 2 mg PO TID PRN PRN PRN Reason: DIARRHEA/LOOSE STOOLS Last Admin: 12/08/18 21:09 Dose: 2 mg Documented by: Magnesium Hydroxide (Milk Of Magnesia) 30 ml PO .PRN X 1 PRN PRN Reason: Constipation Last Admin: 12/03/18 18:13 Dose: 30 ml Documented by: Multivitamins (Multivitamin) [facility] Last Admin: 12/16/18 08:25 Dose: 1 tablet Documented by: Nutritional Formula (Richard - Banks Flavor) [facility] Last Admin: 12/16/18 08:24 Dose: Not Given Documented by: Potassium Chloride (K-Dur) 20 meq [facility] Last Admin: 12/16/18 08:24 Dose: 20 meq Documented by: Pramipexole Dihydrochloride (Mirapex) 0.5 mg [facility] Last Admin: 12/15/18 20:41 Dose: 0.5 mg Documented by: Pravastatin Sodium (Pravachol) 40 [facility] Last Admin: 12/15/18 20:41 Dose: 40 mg Documented by: Quetiapine Fumarate (Seroquel) 12.[facility] Last Admin: 12/15/18 20:38 Dose: 12.5 mg Documented by: Senna/Docusate Sodium (Senokot-S, Malathi-Colace) 2 tablet PO BID [facility] Last Admin: 12/16/18 08:26 Dose: 1 tablet Documented by: Medical Necessity - Tobacco Use Smoking Status: Never smoker Tobacco Use: Non-smoker Assessment/Plan 1. Lumbar canal stenosis status post laminectomy of L2-3, revision laminectomy of L4 and 5 as well as removal of hardware from L4 and 5 and fusion of L1-4 -Continue with PT/OT -Incision does not seem to be infected -Continue pain management per primary -Follow-up with her primary care physician on discharge 2. HTN/HLD/history of SVT -Continue with her home blood pressure medications as well as her statin -Continue with her Cardizem for her SVT 3. CML -Stable -Continue with imatinib 4. Chronic renal failure stage III -Creatinine and GFR at baseline -Continue to monitor periodically 5. Depression/anxiety/sleep disorder -Stable -Continue with Prozac -Continue Seroquel 12.5 mg at night 6. Anemia possibly secondary to chronic disease versus acute blood loss from surgery -Transfuse 2 units at the [facility] after surgery -9.7 on admission -Repeat hemoglobin on Tuesday was 10.3 DVT: Lovenox Code Visit Inpatient E&M: 39449 Subs Hosp L2
== END 2018-12-16 15:40 | disposition home health service (06) | DRG 560 ==
PROVIDERS: Nurse Practitioner Family; Psychiatry & Neurology Neurology; Admitting Provider Psychiatry & Neurology Neurology; Referring Provider Psychiatry & Neurology Neurology; Visit Provider Family Medicine
DX: Z47.89 Encounter for other orthopedic aftercare (principal); C92.10 Chronic myeloid leukemia, BCR/ABL-positive, not having achieved remission; I47.1 Supraventricular tachycardia; E87.1 Hypo-osmolality and hyponatremia; K21.9 Gastro-esophageal reflux disease without esophagitis; I12.9 Hypertensive chronic kidney disease with stage 1 through stage 4 chronic kidney disease, or unspecified chronic kidney disease; N18.3 Chronic kidney disease, stage 3 (moderate); E78.5 Hyperlipidemia, unspecified; F41.9 Anxiety disorder, unspecified; H35.52 Pigmentary retinal dystrophy; F32.9 Major depressive disorder, single episode, unspecified; E87.6 Hypokalemia; G25.81 Restless legs syndrome; M48.061 Spinal stenosis, lumbar region without neurogenic claudication; F34.1 Dysthymic disorder; D64.9 Anemia, unspecified
CPT/HCPCS: 36415; 80048; 81001; 84132; 85025; 92507; 92523; 97110; 97116; 97162; 97166; 97530; 97535; 97760; 97802